=== PATIENT | male | born 1970 ===

== ENCOUNTER 2025-06-01 18:37 | Inpatient (IN) | payer MEDICAID, SELFPAY ==
--- NOTE | ~2025-06-01 | US_ITS ---
EXAMINATION: US ABDOMEN LIMITED CLINICAL INFORMATION: Elevated LFTs.. COMPARISON: June 01, 2025 TECHNIQUE: Real-time ultrasound of the right upper quadrant abdomen using grayscale and color technique. FINDINGS: Liver measures 21 cm. Nodular surface. Coarse echotexture. No gross solid or cystic lesion. Main portal vein is patent with normal hepatopedal flow direction. Perihepatic fluid, moderate volume. There are numerous intraluminal hyperechoic lesions with prostatic or shadowing in the gallbladder lumen. The gallbladder wall measures 5 mm. Trace of pericholecystic fluid. Common bile duct measures 2 mm. Negative sonographic Chase's sign per technologist. Right kidney measured 13 cm. Normal echotexture. No hydronephrosis. 6 mm hyperechoic lesion in the midportion. US/US abdomen limited IMPRESSION: Hepatomegaly and steatosis with the questionable hepatocellular disease versus cirrhosis. Ascites, moderate volume. Cholelithiasis. No choledocholithiasis. 6 mm calcification, midportion right kidney without hydronephrosis. Electronically signed by: Davis Pierre MD 06/06/2025 04:00 PM EST
--- NOTE | ~2025-06-01 | US_ITS ---
CLINICAL HISTORY: RUQ please US abdomen limited Comparison: None provided Findings: The liver is echogenic and enlarged measuring 19.1 cm. There is no intrahepatic bile duct dilatation. The common duct is 3 mm in diameter. Cholelithiasis. There is sonographic Chase sign. Gallbladder wall measures 5 mm. No pericholecystic fluid. IMPRESSION: 1. Cholelithiasis with gallbladder wall thickening. No pericholecystic fluid. Positive Chase sign. 2. Hepatomegaly with hepatic steatosis. This document has been electronically signed by: Bertha Jacobson MD on 06/01/2025 22:17:34
[2025-06-01 18:45] VITALS: BP 156/100; PULSE 98; RESP 18; TEMP 36.3; O2SAT 97; BMI 30.5
--- NOTE | 2025-06-01 18:45 | ED.GENADULT ---
HPI - General Adult General Chief complaint: ETOH/Substance Use Stated complaint: Alcohol withdrawal/Seeking detox Time Seen by Provider: 06/01/25 20:00 Source: patient, RN notes reviewed and old records reviewed Mode of arrival: ambulatory Limitations: no limitations History of Present Illness ED Provider: Ramírez SMITH narrative: Patient is a 55 year old male with a pmhx of alcohol abuse and HTN presenting today requesting detox, last drink was a 6-pack of beer at 3pm. Pt endorses drinking 20+ beers daily for 15 years, he has tried to quit multiple times at home. Most recent detox was 2 years ago and he was sober for 4 months. Pt reports no hx of seizures or DTs while withdrawaling. Today, pt has bilateral hand tremors and is nauseous and dry heaving. Denies diarrhea or pain. Pt states he has multiple life stressors that have caused him to drink, as well as being surrounded by alcoholics. This is the first time he has requested help with his detox, saying he wants to stick to it this time. Related Data Allergies Allergy/AdvReac Type Severity Reaction Status Date / Time No Known Allergies Allergy Verified 06/01/25 18:46 Review of Systems Constitutional: Constitutional: Reports as per HPI, Denies chills, Denies fatigue, Denies fever(s) and Denies headache(s) ENT: Denies headache(s) Cardiovascular: Cardiovascular: Denies chest pain and Denies dyspnea Respiratory: Respiratory: Denies cough and Denies dyspnea Gastrointestinal: Gastrointestinal: Denies abdominal pain and Denies constipation Genitourinary: Genitourinary: Denies difficulty urinating and Denies dysuria Neurologic: Denies headache(s) and Denies focal weakness Endocrine: Endocrine: Denies fatigue PMFSH Social History Social History Alcohol intake: current Alcohol intake frequency: 3 or more drinks per day Alcohol type: beer Advance Directives: No Advance Directives Information Provided: No Do you have a plan to hurt others: No Plan Physical Exam ED Vital Signs: Vital Signs - 24 hr 06/01/25 18:45 06/01/25 20:02 06/01/25 22:08 Temperature 97.4 F 97.6 F 98.0 F Pulse Rate 98 83 89 Respiratory Rate 18 20 18 Blood Pressure 156/100 H 141/89 H 112/83 Pulse Oximetry 97 98 97 Oxygen Delivery Method Room Air Room Air Room Air BMI result Body Mass Index 30.5 Const General: healthy appearing, no acute distress, alert and awake Nutritional Appearance: well nourished Orientation/consciousness: patient oriented x3 HENMT Head: Yes normocephalic and Yes atraumatic Throat: Yes posterior oropharynx normal Eyes Eyelids: Yes eyelids normal Conjunctivae: conjunctivae normal Sclerae: sclerae normal Corneas: corneas normal Pupils: Equal, round and reactive pupils present EOM: EOMs intact bilaterally Resp Effort & Inspection: normal respiratory effort, able to speak in complete sentences and not labored Cardio Rate: regular rate Rhythm: regular rhythm GI Inspection: No distended Palpation (GI): Soft to palpation, not firm, Tenderness to palpation present (GI) in the RUQ, no guarding and not rigid Skin General skin exam: elasticity normal Neuro General: patient oriented x3 Cranial nerves: Yes CN's II-XII intact bilaterally, Yes Equal, round and reactive pupils present and Yes Bilaterally intact EOM present Cognition (Neuro): normal cognition Extrem Other: Moving all extremities well without any obvious deformities Course Course Course Narrative: Rapid medical examination performed in triage by Mel Navarro PA-C: Patient is a 55 year old assigned male at presenting to the emergency department with alcohol withdrawal. Patient states he is going through withdrawal from alcohol, normally drinks 20 beers daily. Detailed physical exam and review of systems are deferred to the construction administrative assistant. EKG and labs ordered. Patient placed back in the waiting room pending room availability and results. Medications Administered Discontinued Medications Generic Name Dose Route Start Last Admin Trade Name Freq PRN Reason Stop Dose Admin Sodium Chloride 1,000 mls @ 999 mls/hr 06/01/25 20:45 06/01/25 22:12 Ns IV 06/01/25 21:45 Infused .Q1H1M PAUL Infusion Magnesium Sulfate 2 gm in 50 mls @ 150 mls/hr 06/01/25 20:38 06/01/25 21:30 Magnesium Sulfate/H2o IV 06/01/25 20:57 Infused ONCE ONE Infusion Thiamine HCl 200 mg/ Sodium 102 mls @ 204 mls/hr 06/01/25 20:38 06/01/25 21:30 Chloride IV 06/01/25 21:07 Infused ONCE ONE Infusion Folic Acid 1 mg/ Sodium 50.2 mls @ 100.4 mls/hr 06/01/25 20:38 06/01/25 22:53 Chloride IV 06/01/25 21:07 Infused ONCE ONE Infusion Phenobarbital Sodium 274 mg 06/01/25 20:45 06/01/25 21:00 Phenobarbital Sodium 130 Mg/Ml Im Once IM 06/01/25 20:46 274 mg ONCE ONE Administration Prochlorperazine Edisylate 10 mg 06/01/25 21:11 06/01/25 21:31 Prochlorperazine Edisylate 10 Mg/2 Ml Vial IVPUSH 06/01/25 21:12 10 mg ONCE ONE Administration Medical Decision Making Medical Decision Making MDM Narrative: 55-year-old male with a past medical history significant for alcohol dependence, liver cirrhosis presents for evaluation of vomiting and alcohol withdrawal. The patient reports a history of alcohol withdrawal but denies any history of seizures or delirium tremens. His last drink was a few hours prior to arrival at 3:00 p.m.. His CIWA score is 14 in his alcohol level is still 297. However the patient drinks a substantial amount of alcohol daily and I do believe he is still having some withdrawal symptoms despite having alcohol in his system. he has multiple electrolyte abnormalities including hyponatremia, hypokalemia senior and hypocalcemia. These will be repleted. The patient's cut no leukocytosis but does have a mild anemia consistent with known liver disease. he has a fairly significant [place] [address] which again in his likely due to liver cirrhosis.. He did not initially report abdominal pain but was vomiting, on exam he had right upper quadrant tenderness. A right upper quadrant ultrasound demonstrated findings consistent with liver cirrhosis, a thickened gallbladder which could be related to his liver cirrhosis. He has gallstones but no pericholecystic fluid. The patient is treated for alcohol withdrawal with phenobarbital. Differential Diagnosis Differential Diagnoses: The differential diagnosis associated with the presentation includes alcohol dependence Acute alcohol withdrawal Liver cirrhosis Dehydration Electrolyte abnormality Metabolic acidosis Admission/Observation Consideration of admission/observation: Escalation of care including admission/observation considered Consult Healthcare Provider Management of the patient was discussed with: Hospitalist and Hybrid Corn Breeder ( general surgery) Lab Data [facility] Lab Attestation statement: I reviewed the patient's lab results. as above 06/01/25 19:23 06/01/25 19:23 Labs: Lab Results 06/01/25 06/01/25 Range/Units 19:23 22:08 WBC 6.5 (4.8-10.8) X10*3/uL RBC 3.71 L (4.60-5.80) X10*6/uL Hgb 12.3 L (14.0-18.0) g/dl Hct 34.0 L (42.0-52.0) % MCV 91.6 (80.0-98.0) fL MCH 33.2 H (27.0-33.0) pg MCHC 36.2 H (31.0-36.0) g/dl RDW 16.4 H (11.0-16.0) % Plt Count 58 L (160-400) X10*3/uL MPV 10.0 (9.4-12.4) fL Immature Gran % (Auto) 0.3 (0.0-0.4) % Neut % (Auto) 68.6 (45-73) % Lymph % (Auto) 24.1 (20-40) % Terrell % (Auto) 5.1 (2-11) % Eos % (Auto) 0.8 (0-4) % Baso % (Auto) 1.1 (0-2) % Lymph # (Auto) 1.6 (1.2-4.9) X10*3/uL Terrell # (Auto) 0.3 (0.1-1.2) X10*3/uL Eos # (Auto) 0.1 (0.0-0.4) X10*3/uL Baso # (Auto) 0.1 (0.0-0.2) X10*3/uL Abs Immat Gran (auto) 0.02 (0.00-0.03) X10*3/uL Absolute Neuts (auto) 4.4 (2.0-8.3) x10*3/uL Absolute Nucleated RBC 0.000 (0.0-0.012) X10*3/uL Nucleated RBC % (auto) 0.0 (0.0-0.2) /100WBC VBG pH 7.44 H (7.32-7.43) VBG pCO2 30 mmHg VBG pO2 138 mmHg VBG HCO3 20 L (22-26) mmol/L VBG O2 Saturation 99.0 % VBG Base Excess -2.3 mmol/L Sodium 132 L (135-145) mmol/L Potassium 3.1 L (3.3-5.1) mmol/L Chloride 99 (96-108) mmol/L Carbon Dioxide 23 (22-29) mmol/L Anion Gap 13 (12-20) BUN 4 L (9-16) mg/dL Creatinine 0.63 (0.5-1.4) mg/dL Estim Creat Clear Calc 145.0 Estimated GFR > 60 Random Glucose 124 H (60-115) mg/dL Calcium 7.9 L (8.4-10.2) mg/dL Magnesium 1.3 L* (1.6-2.6) mg/dL Total Bilirubin 2.8 H (0.0-1.0) mg/dL Direct Bilirubin 1.7 H (0.0-0.5) mg/dL AST 162 H (5-37) U/L ALT 28 (0-40) U/L Alkaline Phosphatase 262 H (39-117) U/L Total Protein 9.0 H (6.5-8.0) g/dL Albumin 3.0 L (3.5-5.0) g/dL Ethyl Alcohol 296 mg/dL Radiology Impression Discussion of test interpretation with radiology: I have reviewed the radiologist's reading. Radiologist Impression: Findings: The liver is echogenic and enlarged measuring 19.1 cm. There is no intrahepatic bile duct dilatation. The common duct is 3 mm in diameter. Cholelithiasis. There is sonographic Chase sign. Gallbladder wall measures 5 mm. No pericholecystic fluid. IMPRESSION: 1. Cholelithiasis with gallbladder wall thickening. No pericholecystic fluid. Positive Chase sign. 2. Hepatomegaly with hepatic steatosis. This document has been electronically signed by: Bertha Jacobson MD on 06/01/2025 22:17:34 Discharge Plan Discharge Clinical Impression: Alcohol withdrawal syndrome Patient Disposition: Admitted As Inpatient Print Language: Unable To Collect
--- NOTE | 2025-06-01 18:46 | ECG_ITS ---
Test Reason : alcohol withdrawal Blood Pressure : */* mmHG Vent. Rate : 88 BPM Atrial Rate : 88 BPM P-R Int : 162 ms QRS Dur : 88 ms QT Int : 426 ms P-R-T Axes : -27 12 31 degrees QTcB Int : 515 ms Normal sinus rhythm Prolonged QT Abnormal ECG No previous ECGs available Referred By: Mel Navarro Electronically Signed By: GUILLERMO PHILLIPS
[2025-06-01 19:29] LABS: MANUAL DIFF FLAG NO
[2025-06-01 19:47] LABS: Alanine Aminotransferase 28 U/L (0-40); Albumin Level 3.0 g/dL (3.5-5.0); Alkaline Phosphatase 262 U/L (39-117); Anion Gap 13 (12-20); Aspartate Amino Transferase 162 U/L (5-37); Blood Urea Nitrogen 4 mg/dL (9-16); Calcium 7.9 mg/dL (8.4-10.2); Carbon Dioxide 23 mmol/L (22-29); Chloride 99 mmol/L (96-108); Creatinine Clr Calc Pharmacy 145.0; Estimated Glomerular Filt Rate > 60; Magnesium 1.3 mg/dL (1.6-2.6); Potassium 3.1 mmol/L (3.3-5.1); Sodium 132 mmol/L (135-145); Total Protein 9.0 g/dL (6.5-8.0)
[2025-06-01 19:57] LABS: Hematocrit 34.0 % (42.0-52.0); Hemoglobin 12.3 g/dl (14.0-18.0); Imm Gran Abs Auto 0.02 X10*3/uL (0.00-0.03); Imm Gran Pct Auto 0.3 % (0.0-0.4); Lymphocytes Absolute Auto 1.6 X10*3/uL (1.2-4.9); Mean Corpuscular HGB Conc 36.2 g/dl (31.0-36.0); Mean Corpuscular Hemoglobin 33.2 pg (27.0-33.0); Mean Corpuscular Volume 91.6 fL (80.0-98.0); NRBC Abs Auto 0.000 X10*3/uL (0.0-0.012); NRBC Pct Auto 0.0 /100WBC (0.0-0.2); Red Blood Count 3.71 X10*6/uL (4.60-5.80); White Blood Count 6.5 X10*3/uL (4.8-10.8)
[2025-06-01 20:02] VITALS: BP 141/89; PULSE 83; RESP 20; TEMP 36.4; O2SAT 98
--- NOTE | 2025-06-01 20:06 | PC.NURSE ---
18 g IV in right AC
[2025-06-01 20:13] LABS: Platelet Count 58 X10*3/uL (160-400)
--- NOTE | 2025-06-01 20:19 | PC.NURSE ---
Pt arrived from triage, changed into hospital gown, and placed on monitor and storage bin tender. Pt reports he is a chronic alcohol drinker, 20 beers per day. Last drink 3pm today. Pt denies hx withdrawal seizures. Pt is tremulous and anxious. CIWA 13 and COWS 10. CARMELINA Saini aware.
--- OUTSIDE RECORDS SUMMARY | 2025-06-01 20:28 | XMS_ITS | Clinical Summary ---
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 2 Active FLUoxetine (PROZAC) 20 MG capsule Take 20 mg by mouth daily. 2 Active losartan (COZAAR) 50 MG tablet Take 50 mg by mouth daily. 1 Active omeprazole (PRILOSEC) 20 MG capsule Take 20 mg by mouth daily. 2 Active naproxen (NAPROSYN) 500 MG tablet Take 1 tablet (500 mg total) by mouth 2 (two) times a day for 3 days. Then twice daily as needed for pain, inflammation 20 tablet 2 Active Active Problems No known active problems Social History Tobacco Use Types Packs/Day Years Used Date Smoking Tobacco: Light Smoker Smokeless Tobacco: Never Tobacco Cessation:Ready to Q uit: No; Counseling Given: No Education Answer Date Recorded Are you interested in more education? Not on jessica e 10/23/2022 Are you concerned about learning? Not on file 10/23/2022 No 10/23/2022 No 10/23/2022 Digital Access Answer Date Recorded No 11/21/2022 No 11/21/2022 Reliable internet access at home? Not on file 11/21/2022 Device with a working camera? Not on file Intimate Partner Violence Answer Date R ecorded Are you denied basic needs s uch as food, clothing, or medical care? No 01/15/2024 In the past 12 months have y ou been in a relationship with a person who hurts, threatens, or tries to control you? No 01/15/2024 Are you denied basic needs s uch as food, clothing, or medical care? No 01/15/2024 In the past 12 months have y ou been in a relationship with a person who hurts, threatens, or tries to control you? No 01/15/2024 Sex and Gender Information Value Date Recorded Sex Assigned at Not on file Legal Sex Male 10:32 PM EDT Gender Identity Not on file Sexual Orientation Not on file Last Filed Vital Signs Vital Sign Reading Time Taken Comments Blood Pressure 102/70 01/15/2024 10:59 AM EDT Pulse 95 01/15/2024 10:59 AM EDT Temperature 36.9 C (98.4 F) 01/15/2024 10:59 AM EDT Respiratory Rate 20 01/15/2024 10:59 AM EDT Oxygen Saturation 96% 01/15/2024 10:59 AM EDT Inhaled Oxygen Concentration - - Weight 108.9 kg (240 lb) 01/15/2024 9:53 AM EDT Height 177.8 cm (5' 10 ) 01/15/2024 9:53 AM EDT Body Mass Index 34.44 01/15/2024 9:53 AM EDT Plan of Treatment Health Maintenance Due Date Last Done Comments Adult Td,Tdap Booster 1970 CREATININE LEVEL 1970 LIPID PANEL 1970 POTASSIUM LEVEL 1970 DEPRESSION SCREENING 1982 SMOKING Hx and SMOKELESS TOB ACCO SCREENING 1983 HEPATITIS C SCREENING 02/24/1988 HIV ONE-TIME SCREENING (18-6 5 YEARS) 02/24/1988 PNEUMOCOCCAL VACCINES (50+ y ears) (1 of 2 - PCV) 1989 SCREENING FOR DIABETES 2005 COLOGUARD 2015 COLONOSCOPY 2015 COLORECTAL CANCER SCREENING 2015 FIT TEST 2015 FOBT 2015 SIGMOIDOSCOPY 2015 VIRTUAL COLONOSCOPY 2015 ZOSTER VACCINES (1 of 2) 02/24/2020 INFLUENZA VACCINE (#1) 2025 COVID-19 VACCINE ( - 2024-2 6 season) 2025 RSV VACCINE (1 - 1-dose 75+ series) 2045 HEPATITIS A VACCINES Aged Out No long er eligible based on patient's age to complete this topic HIB VACCINES Aged Out No longer eligi ble based on patient's age to complete this topic MENINGOCOCCAL VACCINES (ACWY) Aged Out No longer eligible based on patient's age to complete this topic MENINGOCOCCAL VACCINES (B) Aged Out N o longer eligible based on patient's age to complete this topic Medical Devices Not on file Insurance [facility] Care Teams Field Laborer Relationship Specialty Start Date End Date Slim Mancera, DO [address] [facility] [address] [place] [id number] PCP - General Internal Medicine 09/14/21 Additional Source Comments The information contained in this document represents components of the legal health record. It is not the complete legal health record.[facility]
[2025-06-01] MEDS: Thiamine HCL 200 MG in 0.9 % Sodium Chloride 100 ML 204 MG IV (21:00)
[2025-06-01] MEDS: Magnesium Sulfate/H2O 2 GM/50 ML PIGGYBACK IV (21:00)
[2025-06-01] MEDS: PHENobarbitaL sodium 130 MG/ML IM ONCE 274 MG IM (21:00)
--- NOTE | 2025-06-01 21:45 | PC.NURSE ---
Folic acid delayed, pharmacy bringing up to ED
[2025-06-01 22:08] VITALS: BP 112/83; PULSE 89; RESP 18; TEMP 36.7; O2SAT 97
[2025-06-01 22:13] LABS: VBG HCO3 20 mmol/L (22-26); VBG O2 % Saturation 99.0 %
[2025-06-01 22:14] LABS: Venous Blood Gas Refer to POC result
--- NOTE | 2025-06-01 22:19 | PC.NURSE ---
Pt now resting quietly on stretcher, now less anxious. Pt states medications have helped his symptoms. All needs met at this time, call [facility] within reach.
[2025-06-01 23:13] LABS: Lipase 64 U/L (8-78)
[2025-06-01] MEDS: Potassium Chloride ER 20 MEQ TAB.ER.PRT 40 MEQ PO (23:17)
--- NOTE | 2025-06-01 23:20 | P.HPHOSP_ITS ---
History of Present Illness Date of Service: 06/01/25 Chief Complaint: Alcohol withdrawal 55-year-old male with a past medical history of alcoholic liver cirrhosis, hypertension, anxiety, depression; to the hospital requesting alcohol detox. Patient reports that he drinks alcohol on a daily basis-about 20 beers per day. Last drink was few hours prior to coming to the hospital. Denies any prior history of seizures or alcohol withdrawal DTs. Denies any chest pain or palpitations. Reports having tremulousness, nausea and diarrhea. Patient denied any chest pain or palpitations. Denies any fevers and chills. Denies any GI or symptoms. Review of all other systems is negative except mentioned above ER course: Per ER team, patient noted to be tremulous; concern for possible alcohol withdrawal; given phenobarbital. Reports abdominal discomfort. CT abdomen pelvis showed liver cirrhosis and gallbladder wall thickening. Spoke to General surgery who mentioned to obtain HIDA scan unless concern for any acute intervention and patient probably does not need any intervention for tonight. [facility] Social History Alcohol intake: current Alcohol intake frequency: 3 or more drinks per day Alcohol type: beer Patient Tobacco Use Status: Former Tobacco user Advance Directives: No Advance Directives Information Provided: No Do you have a plan to hurt others: No Plan Nutrition Risks: No Nutritional Risk Meds Allergies Allergy/AdvReac Type Severity Reaction Status Date / Time No Known Allergies Allergy Verified 06/01/25 18:46 Active Medications: Current Medications Acetaminophen (Acetaminophen 325 Mg Tablet) 650 mg PO Q6H PRN PRN Reason: Pain, Mild 1-3,fever,headache Calcium Carbonate (Calcium Carbonate 750 Mg Tab.Chew) 750 mg PO Q4H PRN PRN Reason: Heartburn Folic Acid (Folic Acid 1 Mg Tablet) 1 mg PO DAILY PAUL Stop: 06/05/25 08:59 Heparin Sodium (Porcine) (Heparin Sodium,Porcine 5,000 Unit/Ml Vial) 5,000 unit SUBCUT Q8H PAUL Hydromorphone HCl (Hydromorphone Hcl 1 Mg/Ml Syringe) 0.5 mg IVPUSH Q4H PRN; Protocol PRN Reason: Breakthrough Pain Ceftriaxone Sodium 1 gm/ (Sodium Chloride) 50 mls @ 100 mls/hr IV Q24H PAUL Metronidazole (Flagyl) 500 mg in 100 mls @ 100 mls/hr IV Q8H PAUL Magnesium Hydroxide (Milk Of Magnesia 30 Ml Oral.Susp) 30 ml PO DAILY PRN PRN Reason: Constipation Melatonin (Melatonin 3 Mg Tablet) 6 mg PO BEDTIME PRN PRN Reason: Insomnia Multivitamins/Vitamin C (Multivitamin Tablet) 1 tab PO DAILY [facility] Stop: 06/05/25 08:59 Pantoprazole Sodium (Pantoprazole Sodium 40 Mg/10 Ml Vial) 40 mg IVPUSH DAILY@0630 [facility] Pharmacy Consult (Consult Rx Etoh Phenob Im/Po) 1 each MISCELLANE ONCE PRN; Protocol PRN Reason: Consult order Phenobarbital (Phenobarbital 15 Mg Tablet) 45 mg PO BID [facility] Stop: 06/03/25 21:01 Phenobarbital (Phenobarbital 30 Mg Tablet) 30 mg PO BID [facility] Stop: 06/05/25 21:01 Phenobarbital (Phenobarbital 15 Mg Tablet) 15 mg PO DAILY [facility] Stop: 06/07/25 09:01 Phenobarbital Sodium (Phenobarbital Sodium 130 Mg/Ml Vial Im Q3hx2) 205 mg IM Q3H [facility] Stop: 06/02/25 03:01 Sodium Chloride (0.9 % Sodium Chloride Flush 3 Ml Syringe) 3 ml IVFLUSH QSHIFT [facility] Thiamine HCl (Thiamine Hcl 100 Mg Tablet) 100 mg PO DAILY [facility] Stop: 06/05/25 08:59 Physical Exam 2 Vital Signs and Narrative: Vital Signs: Last Vital Signs Temp 98.0 F 06/01/25 22:08 Pulse 89 06/01/25 22:08 Resp 18 06/01/25 22:08 BP 112/83 06/01/25 22:08 Pulse Ox 97 06/01/25 22:08 O2 Del Method Room Air 06/01/25 22:08 BMI result Body Mass Index 30.5 Gen: Appears be in no acute distress HEENT: NCAT, Moist mucosa. Pulmonary: Vesicular breath sounds, fair air entry CVS: Normal S1-S2 Abdomen: BS+, Soft, Nontender Extremities: Warm well perfused Neuro: Alert and awake. Results Labs 06/01/25 19:23 06/01/25 19:23 Labs: Laboratory Results - last 24 hr 06/01/25 06/01/25 19:23 22:08 MCV 91.6 MCH 33.2 H MCHC 36.2 H RDW 16.4 H Plt Count 58 L MPV 10.0 Immature Gran % (Auto) 0.3 Neut % (Auto) 68.6 Lymph % (Auto) 24.1 Logan % (Auto) 5.1 Eos % (Auto) 0.8 Baso % (Auto) 1.1 Lymph # (Auto) 1.6 Logan # (Auto) 0.3 Eos # (Auto) 0.1 Baso # (Auto) 0.1 Abs Immat Gran (auto) 0.02 Absolute Neuts (auto) 4.4 Absolute Nucleated RBC 0.000 Nucleated RBC % (auto) 0.0 VBG pH 7.44 H VBG pCO2 30 VBG pO2 138 VBG HCO3 20 L VBG O2 Saturation 99.0 VBG Base Excess -2.3 Anion Gap 13 Estim Creat Clear Calc 145.0 Estimated GFR > 60 Random Glucose 124 H Calcium 7.9 L Magnesium 1.3 L* Total Bilirubin 2.8 H Direct Bilirubin 1.7 H AST 162 H ALT 28 Alkaline Phosphatase 262 H Total Protein 9.0 H Albumin 3.0 L Lipase 64 Ethyl Alcohol 296 Assessment and Plan (1) Alcohol withdrawal syndrome: Qualifiers: Complication of substance-induced condition: uncomplicated Qualified Code(s): F10.930 - Alcohol use, unspecified with withdrawal, uncomplicated Status: Acute Plan 55-year-old male with a past medical history of alcoholic liver cirrhosis, hypertension, anxiety, depression; to the hospital requesting alcohol detox. Alcohol use disorder: Monitor on CIWA protocol. 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 Seizure precautions Gastritis: IV PPI. Advance diet as tolerated Question cholecystitis: CT abdomen pelvis showed gallbladder wall thickening. Empirically covered with ceftriaxone and Flagyl. Follow up HIDA scan. General surgery notified. Hypomagnesemia: Repleted Hypokalemia: Repleted Hyponatremia: Will monitor Thrombocytopenia: Likely related to alcoholic liver disease. No signs of bleeding currently. H&H stable. Will monitor. Med reconciliation: Resume home medications once med rec is completed by pharmacy in a.m. DVT prophylaxis: SCD boots. No pharmacologic agent due to thrombocytopenia. Code status: Full code Quality Stroke Does the patient have a stroke diagnosis?: No VTE Prior VTE?: No VTE Risk Level:: Medical - moderate - high VTE Device Contraindication: Treatment Not Indicated VTE Drug Contraindication: N/A - Med Ordered
--- NOTE | 2025-06-01 23:43 | PC.NURSE ---
Blood cultures ordered per MD Todd, verbal order with read back.
[2025-06-01 23:57] VITALS: BP 108/73; PULSE 92; RESP 18; TEMP 36.8; O2SAT 95
[2025-06-01] MEDS: PHENobarbitaL sodium 130 MG/ML VIAL IM Q3Hx2 205 MG IM (23:59)
--- NOTE | 2025-06-02 00:17 | HO.NURTONUR ---
Pt is a 55 y.o. male coming in for alcohol withdrawal symptoms and seeking detox. Pt drinks 20 beers daily. Last drink /5 3pm. PMH alcohol abuse and HTN. Pt presented with moderate tremors and nausea/dry heaving. Labs remarkable for elevated bilirubin and elevated LFTs, magnesium 1.3, potassium 3.1. Mag and potassium replaced via IV and PO. Abdominal ultrasound shows 1. Cholelithiasis with gallbladder wall thickening. No pericholecystic fluid. Positive Chase sign. 2. Hepatomegaly with hepatic steatosis. Pt received IV Rocephin and Flagyl and is on the phenobarbital protocol. Pt reports relief of symptoms with phenobarb. VSS, a&ox4. 18 g IV right AC. Pt ambulates independently. Pt denies any abdominal pain at this time. Nausea relieved after medication.
[2025-06-02] MEDS: metroNIDAZOLE/NS 500 MG/100 ML PIGGYBACK 100 MG IV ×3 (00:35→15:08)
--- NOTE | 2025-06-02 00:42 | PC.NURSE ---
Pt ambulated to bathroom with steady gait.
--- NOTE | 2025-06-02 02:21 | PC.NURSE ---
Pt ambulated to bathroom with steady gait.
[2025-06-02] MEDS: PHENobarbitaL sodium 130 MG/ML VIAL IM Q3Hx2 205 MG IM (02:32)
[2025-06-02 02:35] VITALS: BP 116/80; PULSE 93; RESP 18; TEMP 36.4; O2SAT 97
[2025-06-02 05:24] LABS: Alanine Aminotransferase 25 U/L (0-40); Albumin Level 2.7 g/dL (3.5-5.0); Alkaline Phosphatase 221 U/L (39-117); Anion Gap 15 (12-20); Aspartate Amino Transferase 160 U/L (5-37); Blood Urea Nitrogen 3 mg/dL (9-16); Calcium 7.5 mg/dL (8.4-10.2); Carbon Dioxide 19 mmol/L (22-29); Chloride 106 mmol/L (96-108); Creatinine Clr Calc Pharmacy 147.3; Estimated Glomerular Filt Rate > 60; Potassium 3.8 mmol/L (3.3-5.1); Sodium 136 mmol/L (135-145); Total Protein 8.0 g/dL (6.5-8.0)
[2025-06-02 05:34] LABS: NRBC Abs Auto 0.000 X10*3/uL (0.0-0.012); NRBC Pct Auto 0.0 /100WBC (0.0-0.2); PLT CLUMP 1; SCAN SMEAR FLAG 1
[2025-06-02 05:36] LABS: Hematocrit 31.7 % (42.0-52.0); Hemoglobin 11.6 g/dl (14.0-18.0); Imm Gran Abs Auto 0.02 X10*3/uL (0.00-0.03); Imm Gran Pct Auto 0.4 % (0.0-0.4); Lymphocytes Absolute Auto 2.2 X10*3/uL (1.2-4.9); Mean Corpuscular HGB Conc 36.6 g/dl (31.0-36.0); Mean Corpuscular Hemoglobin 32.7 pg (27.0-33.0); Mean Corpuscular Volume 89.3 fL (80.0-98.0); Red Blood Count 3.55 X10*6/uL (4.60-5.80)
[2025-06-02 05:38] LABS: Platelet Count 44 X10*3/uL (160-400); White Blood Count 5.4 X10*3/uL (4.8-10.8)
[2025-06-02 05:39] LABS: MANUAL DIFF FLAG NO
[2025-06-02 06:21] VITALS: BP 134/80; PULSE 100; RESP 20; TEMP 36.9; O2SAT 97
[2025-06-02] MEDS: PHENobarbital 15 MG TABLET 45 MG PO ×2 (08:07→20:08)
--- NOTE | 2025-06-02 08:41 | PC.NURSE ---
This RN assumed care of patient @ 0700 Patient calm and cooperative Denies pain CIWA = 4 Patient c/o of increased anxiety Notified provider, received order for klonopin, good effect noted Patient awaiting bed assignment
--- NOTE | 2025-06-02 10:22 | PHA.MEDREC ---
Addendum entered by Drea Abad RPh 06/02/25 10:32: Reviewed by pharmacist. Of note patient has decreased his fluoxetine to 20 mg daily, was previously taking 40 mg daily Original Note: Pharmacy Consult ? Medication Reconciliation Pharmacy has completed the medication reconciliation. Confirmed medication list with patient and against claims history.
--- NOTE | 2025-06-02 10:28 | P.CONGS_ITS ---
History of Present Illness Consult details Consult date: 06/02/25 Reason for consult: abdominal pain Requesting physician: Hugh Todd Narrative: 55-year-old known alcoholic with hepatic cirrhosis and sequelae including esophageal varices and ascites presents for acute alcohol withdrawal. As part of this evaluation he received a right upper quadrant ultrasound that showed a 5 mm gallbladder wall with cholelithiasis. 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 Patient has no abdominal surgical history. Review of Systems 2 Review of Systems: Review of systems difficult to ascertain as the patient is undergoing alcohol withdrawal Neurologic: Reports confusion Psychiatric: Psychiatric: Reports confusion [facility] Social History Social History Alcohol intake: current Alcohol intake frequency: 3 or more drinks per day Alcohol type: beer Patient Tobacco Use Status: Former Tobacco user Advance Directives: No Advance Directives Information Provided: No Do you have a plan to hurt others: No Plan Nutrition Risks: No Nutritional Risk Meds Allergies Allergy/AdvReac Type Severity Reaction Status Date / Time No Known Allergies Allergy Verified 06/01/25 18:46 Active Medications: Current Medications Acetaminophen (Acetaminophen 325 Mg Tablet) 650 mg PO Q6H PRN PRN Reason: Pain, Mild 1-3,fever,headache Calcium Carbonate (Calcium Carbonate 750 Mg Tab.Chew) 750 mg PO Q4H PRN PRN Reason: Heartburn Folic Acid (Folic Acid 1 Mg Tablet) 1 mg PO DAILY [facility] Stop: 06/05/25 08:59 Last Admin: 06/02/25 08:07 Dose: 1 mg Hydromorphone HCl (Hydromorphone Hcl 0.5 Mg/0.5 Ml Syringe) 0.5 mg IVPUSH Q4H PRN; Protocol PRN Reason: Breakthrough Pain Ceftriaxone Sodium 1 gm/ (Sodium Chloride) 50 mls @ 100 mls/hr IV 2200 [facility] Last Infusion: 06/02/25 00:32 Dose: Infused Metronidazole (Flagyl) 500 mg in 100 mls @ 100 mls/hr IV Q8H [facility] Last Infusion: 06/02/25 09:09 Dose: Infused Magnesium Hydroxide (Milk Of Magnesia 30 Ml Oral.Susp) 30 ml PO DAILY PRN PRN Reason: Constipation Melatonin (Melatonin 3 Mg Tablet) 6 mg PO BEDTIME PRN PRN Reason: Insomnia Multivitamins/Vitamin C (Multivitamin Tablet) 1 tab PO DAILY [facility] Stop: 06/05/25 08:59 Last Admin: 06/02/25 08:07 Dose: 1 tab Pantoprazole Sodium (Pantoprazole Sodium 40 Mg/10 Ml Vial) 40 mg IVPUSH DAILY@0630 [facility] Last Admin: 06/02/25 06:16 Dose: 40 mg Pharmacy Consult (Consult Rx Etoh Phenob Im/Po) 1 each MISCELLANE ONCE PRN; Protocol PRN Reason: Consult order Phenobarbital (Phenobarbital 15 Mg Tablet) 45 mg PO BID [facility] Stop: 06/03/25 21:01 Last Admin: 06/02/25 08:07 Dose: 45 mg Phenobarbital (Phenobarbital 30 Mg Tablet) 30 mg PO BID [facility] Stop: 06/05/25 21:01 Phenobarbital (Phenobarbital 15 Mg Tablet) 15 mg PO DAILY [facility] Stop: 06/07/25 09:01 Sodium Chloride (0.9 % Sodium Chloride Flush 3 Ml Syringe) 3 ml IVFLUSH QSHIFT [facility] Last Admin: 06/02/25 08:30 Dose: Not Given Thiamine HCl (Thiamine Hcl 100 Mg Tablet) 100 mg PO DAILY [facility] Stop: 06/05/25 08:59 Last Admin: 06/02/25 08:07 Dose: 100 mg Home Medications ?Medication ?Instructions ?Recorded ?Confirmed ?Last Taken ?Type clonazepam 1 mg tablet 1 mg PO DAILY PRN Anxiety 06/02/25 05/28/25 History fluoxetine 20 mg capsule 20 mg PO DAILY 06/02/2512/2005/28/25 History magnesium oxide 400 mg (241.3 mg 400 mg PO DAILY 06/0206/02/25 05/28/25 History magnesium) tablet multivitamin 1 tab PO DAILY 06/02/2512/2005/28/25 History naproxen 250 mg tablet 250 mg PO BID PRN Pain 06/0206/02/25 Unknown History omeprazole 20 mg capsule,delayed 20 mg PO DAILY 06/02/25 05/28/25 History release spironolactone 50 mg tablet 50 mg PO DAILY 06/02/2505/28/25 History vitamin A 2,400 mcg capsule 2,400 mcg PO DAILY 5 06/02/25 05/28/25 History Physical Exam 2 Vital Signs: Vital Signs: Last Vital Signs Temp 98.4 F 06/02/25 06:21 Pulse 100 06/02/25 06:21 Resp 20 06/02/25 06:21 BP 134/80 06/02/25 06:21 Pulse Ox 97 06/02/25 06:21 O2 Del Method Room Air 06/02/25 06:21 BMI result Body Mass Index 30.5 Const: General: anxious, confusion and ill appearing Nutritional Appearance: obese Orientation/consciousness: confusion Eyes: General: appearance normal, both eyes and all related structures Chest: Chest palpation & inspection: normal inspection of the chest Resp: Effort & Inspection: normal respiratory effort Cardio: Rate: regular rate GI: Other: Morbidly obese nondistended. Vague nonspecific tenderness on the right side of his abdomen. No peritoneal signs. No guarding. No scars. No external appreciation of cirrhotic sequelae. Neuro: General: confusion Results Labs 06/02/25 05:00 06/02/25 05:00 Labs: Abnormal lab results 06/01/25 06/01/25 06/02/25 Range/Units 19:23 22:08 05:00 RBC 3.71 L 3.55 L (4.60-5.80) X10*6/uL Hgb 12.3 L 11.6 L (14.0-18.0) g/dl Hct 34.0 L 31.7 L (42.0-52.0) % MCH 33.2 H (27.0-33.0) pg MCHC 36.2 H 36.6 H (31.0-36.0) g/dl RDW 16.4 H 16.1 H (11.0-16.0) % Plt Count 58 L 44 L (160-400) X10*3/uL Lymph % (Auto) 40.6 H (20-40) % VBG pH 7.44 H (7.32-7.43) VBG HCO3 20 L (22-26) mmol/L Sodium 132 L (135-145) mmol/L Potassium 3.1 L (3.3-5.1) mmol/L Carbon Dioxide 19 L (22-29) mmol/L BUN 4 L 3 L (9-16) mg/dL Random Glucose 124 H (60-115) mg/dL Calcium 7.9 L 7.5 L (8.4-10.2) mg/dL Magnesium 1.3 L* (1.6-2.6) mg/dL Total Bilirubin 2.8 H 2.4 H (0.0-1.0) mg/dL Direct Bilirubin 1.7 H (0.0-0.5) mg/dL AST 162 H 160 H (5-37) U/L Alkaline Phosphatase 262 H 221 H (39-117) U/L Total Protein 9.0 H (6.5-8.0) g/dL Albumin 3.0 L 2.7 L (3.5-5.0) g/dL Short CBC 06/01/25 06/02/25 Range/Units 19:23 05:00 WBC 6.5 5.4 (4.8-10.8) X10*3/uL Hgb 12.3 L 11.6 L (14.0-18.0) g/dl Hct 34.0 L 31.7 L (42.0-52.0) % Plt Count 58 L 44 L (160-400) X10*3/uL BMP 06/01/25 06/02/25 19:23 05:00 Sodium 132 L 136 Potassium 3.1 L 3.8 D Chloride 99 106 Carbon Dioxide 23 19 L BUN 4 L 3 L Creatinine 0.63 0.62 Calcium 7.9 L 7.5 L Liver Function 06/01/25 06/02/25 Range/Units 19:23 05:00 Total Bilirubin 2.8 H 2.4 H (0.0-1.0) mg/dL Direct Bilirubin 1.7 H (0.0-0.5) mg/dL AST 162 H 160 H (5-37) U/L ALT 28 25 (0-40) U/L Alkaline Phosphatase 262 H 221 H (39-117) U/L Albumin 3.0 L 2.7 L (3.5-5.0) g/dL All other labs normal. Assessment and Plan (1) Abdominal pain: Status: Acute Plan 55-year-old male who has a known alcoholic cirrhotic withdrawing from alcohol with nonspecific reports of abdominal pain. If cholecystitis is a concern then HIDA scan could be helpful. He is not an operative candidate at this time secondary to his current condition. Total time managing care of this patient today: 45 minutes. Procedures Date of Service Date of Service: 06/02/25
--- NOTE | 2025-06-02 12:55 | P.PNIM_ITS ---
Subjective Subjective Date of Service: 06/02/25 Interval History: Pt seen and evaluated in the ED where he is sitting in a chair visibly tremulous Reports increased anxiety No diaphoresis, N/V, auditory or visual hallucinations Also developed a slight nosebleed Denies trauma to the area or headache No chest pain or pressure Abdominal pain Review of Systems Review of Systems: Yes all other systems are reviewed and are negative Physical Exam 2 Exam: Exam: General: AOx3, no acute distress ENT: mild epistaxis, nose atraumatic Resp: CTA bilaterally CVS: S1, S2, regular rate, tachycardic GI: +BS, NT, no distention Skin: Warm, dry Neuro: Cranial nerves II-XII grossly intact bilaterally. Motor grossly intact bilaterally. Significant resting upper extremity tremors noted. Extremities: No edema Psych: Appropriate affect Vital Signs: Vital Signs: Last Vital Signs Temp 98.4 F 06/02/25 06:21 Pulse 100 06/02/25 06:21 Resp 20 06/02/25 06:21 BP 134/80 06/02/25 06:21 Pulse Ox 97 06/02/25 06:21 O2 Del Method Room Air 06/02/25 06:21 BMI result Body Mass Index 30.5 Objective Data Active Medications Acetaminophen (Acetaminophen 325 Mg Tablet) 650 mg PO Q6H PRN PRN Reason: Pain, Mild 1-3,fever,headache Calcium Carbonate (Calcium Carbonate 750 Mg Tab.Chew) 750 mg PO Q4H PRN PRN Reason: Heartburn Folic Acid (Folic Acid 1 Mg Tablet) 1 mg PO DAILY [facility] Stop: 06/05/25 08:59 Last Admin: 06/02/25 08:07 Dose: 1 mg Documented By: BISI Hydromorphone HCl (Hydromorphone Hcl 0.5 Mg/0.5 Ml Syringe) 0.5 mg IVPUSH Q4H PRN; Protocol PRN Reason: Breakthrough Pain Ceftriaxone Sodium 1 gm/ (Sodium Chloride) 50 mls @ 100 mls/hr IV 2200 [facility] Last Infusion: 06/02/25 00:32 Dose: Infused Documented By: CHET Metronidazole (Flagyl) 500 mg in 100 mls @ 100 mls/hr IV Q8H [facility] Last Infusion: 06/02/25 09:09 Dose: Infused Documented By: BISI Magnesium Hydroxide (Milk Of Magnesia 30 Ml Oral.Susp) 30 ml PO DAILY PRN PRN Reason: Constipation Melatonin (Melatonin 3 Mg Tablet) 6 mg PO BEDTIME PRN PRN Reason: Insomnia Multivitamins/Vitamin C (Multivitamin Tablet) 1 tab PO DAILY [facility] Stop: 06/05/25 08:59 Last Admin: 06/02/25 08:07 Dose: 1 tab Documented By: BISI Pantoprazole Sodium (Pantoprazole Sodium 40 Mg/10 Ml Vial) 40 mg IVPUSH DAILY@0630 [facility] Last Admin: 06/02/25 06:16 Dose: 40 mg Documented By: HERBIE Pharmacy Consult (Consult Rx Etoh Phenob Im/Po) 1 each MISCELLANE ONCE PRN; Protocol PRN Reason: Consult order Phenobarbital (Phenobarbital 15 Mg Tablet) 45 mg PO BID [facility] Stop: 06/03/25 21:01 Last Admin: 06/02/25 08:07 Dose: 45 mg Documented By: BISI Phenobarbital (Phenobarbital 30 Mg Tablet) 30 mg PO BID [facility] Stop: 06/05/25 21:01 Phenobarbital (Phenobarbital 15 Mg Tablet) 15 mg PO DAILY [facility] Stop: 06/07/25 09:01 Sodium Chloride (0.9 % Sodium Chloride Flush 3 Ml Syringe) 3 ml IVFLUSH QSHIFT [facility] Last Admin: 06/02/25 08:30 Dose: Not Given Documented By: BISI Non-Admin Reason: IV Running Thiamine HCl (Thiamine Hcl 100 Mg Tablet) 100 mg PO DAILY [facility] Stop: 06/05/25 08:59 Last Admin: 06/02/25 08:07 Dose: 100 mg Documented By: BISI Labs 06/02/25 05:00 06/02/25 05:00 Labs: Laboratory Results - last 24 hr 06/01/25 06/01/25 06/02/25 19:23 22:08 05:00 MCV 91.6 89.3 MCH 33.2 H 32.7 MCHC 36.2 H 36.6 H RDW 16.4 H 16.1 H Plt Count 58 L 44 L MPV 10.0 10.0 Immature Gran % (Auto) 0.3 0.4 Neut % (Auto) 68.6 49.4 Lymph % (Auto) 24.1 40.6 H [place] % (Auto) 5.1 7.2 Eos % (Auto) 0.8 1.3 Baso % (Auto) 1.1 1.1 Lymph # (Auto) 1.6 2.2 [place] # (Auto) 0.3 0.4 Eos # (Auto) 0.1 0.1 Baso # (Auto) 0.1 0.1 Abs Immat Gran (auto) 0.02 0.02 Absolute Neuts (auto) 4.4 2.7 Absolute Nucleated RBC 0.000 0.000 Nucleated RBC % (auto) 0.0 0.0 VBG pH 7.44 H VBG pCO2 30 VBG pO2 138 VBG HCO3 20 L VBG O2 Saturation 99.0 VBG Base Excess -2.3 Anion Gap 13 15 Estim Creat Clear Calc 145.0 147.3 Estimated GFR > 60 > 60 Random Glucose 124 H 87 Calcium 7.9 L 7.5 L Magnesium 1.3 L* Total Bilirubin 2.8 H 2.4 H Direct Bilirubin 1.7 H AST 162 H 160 H ALT 28 25 Alkaline Phosphatase 262 H 221 H Total Protein 9.0 H 8.0 Albumin 3.0 L 2.7 L Lipase 64 Ethyl Alcohol 296 Assessment and Plan (1) Alcohol withdrawal syndrome: Status: Acute Assessment and Plan: 55-year-old male with a past medical history of alcoholic liver cirrhosis, hypertension, anxiety, depression; to the hospital requesting alcohol detox. Alcohol use disorder with acute alcohol withdrawal Pt tremulous, increased anxiety, reports drinking 25+ beers daily Will administer additional dose of phenobarbital 205 mg IM Continue on phenobarb protocol Monitor on CIWA Thiamine, folate, multivitamins, IV PPI Addiction medicine consult Seizure precautions Monitor on telemetry Question of cholecystitis CT abdomen pelvis showed gallbladder wall thickening, abd U/S positive Murhphy's sign; pt with RUQ tenderness Continue empiric ceftriaxone and Flagyl, started 06/01 Follow HIDA scan General surgery notified. Hypomagnesemia: Repleted Hypokalemia: Repleted Hyponatremia: Will monitor Thrombocytopenia: Likely related to alcoholic liver disease. No signs of bleeding currently. H&H stable. Will monitor. DVT prophylaxis: SCD boots. No pharmacologic agent due to thrombocytopenia. Code status: Full code Quality Stroke Does the patient have a stroke diagnosis?: No VTE Prior VTE?: No VTE Risk Level:: Medical - moderate - high VTE Device Contraindication: Treatment Not Indicated VTE Drug Contraindication: N/A - Med Ordered
--- NOTE | 2025-06-02 14:56 | MHC.RECOVRN ---
Checked in w/ pt again and he is feeling finally a little more normal . Is concerned that he cannot drink fluids prior to upcoming procedure but able to remain calm. He has educational materials to read on AUD & tx options. He is open to trying [facility]. recovery eval done.
--- NOTE | 2025-06-02 15:16 | PC.NURSE ---
Pt made it to the window without chair alarm. pt educated on importance of high fall risk and risk for seizures while withdrawing from alcohol. pt verbalized understnading. jose alarm placed and call cisner[facility] within reach pt refusing to go to the bed. will continue to educate the pt.
--- NOTE | 2025-06-02 15:27 | MHC.CM.PN ---
THIS CM MET WITH PATIENT, HE STATES HE HAS BEEN STAYING AT A FRIENDS HOUSE, SOMETIMES EVEN IN HIS CAR. PATIENT STATES HIS MOTHER WILL TRANSPORT HIM HOME AT DISCHARGE. NEW HCP COMPLETED, NOW ON FILE. PCP: DR. MARLEE HUNTER
[2025-06-02 15:33] VITALS: BP 139/87; PULSE 109; RESP 18; TEMP 37; O2SAT 97
[2025-06-02 20:00] VITALS: BP 143/89; PULSE 99; RESP 18; TEMP 37; O2SAT 96
[2025-06-02] MEDS: 0.9 % Sodium Chloride Flush 3 ML SYRINGE IVFLUSH (20:09)
[2025-06-03] VITALS (7 sets, daily range): BP systolic 129–150; BP diastolic 73–91; PULSE 81–100; RESP 16–20; TEMP 36.4–37.4; O2SAT 95–99
[2025-06-03] MEDS: metroNIDAZOLE/NS 500 MG/100 ML PIGGYBACK 100 MG IV ×4 (00:36→23:27)
[2025-06-03 07:11] LABS: Hemoglobin 10.3 g/dl (14.0-18.0); NRBC Abs Auto 0.000 X10*3/uL (0.0-0.012); NRBC Pct Auto 0.0 /100WBC (0.0-0.2); PLT CLUMP 1
[2025-06-03 07:12] LABS: Anion Gap 11 (12-20); Blood Urea Nitrogen 4 mg/dL (9-16); Calcium 7.4 mg/dL (8.4-10.2); Carbon Dioxide 22 mmol/L (22-29); Chloride 102 mmol/L (96-108); Creatinine Clr Calc Pharmacy 157.5; Estimated Glomerular Filt Rate > 60; Potassium 2.9 mmol/L (3.3-5.1); Sodium 132 mmol/L (135-145)
[2025-06-03 07:13] LABS: Hematocrit 28.7 % (42.0-52.0); Mean Corpuscular HGB Conc 35.9 g/dl (31.0-36.0); Mean Corpuscular Hemoglobin 32.4 pg (27.0-33.0); Mean Corpuscular Volume 90.3 fL (80.0-98.0); Red Blood Count 3.18 X10*6/uL (4.60-5.80)
[2025-06-03 07:14] LABS: Platelet Count 32 X10*3/uL (160-400); White Blood Count 4.2 X10*3/uL (4.8-10.8)
[2025-06-03] MEDS: PHENobarbital 15 MG TABLET 45 MG PO ×2 (07:39→21:30)
[2025-06-03] MEDS: Magnesium Sulfate/H2O 2 GM/50 ML PIGGYBACK IV (09:33)
[2025-06-03] MEDS: Potassium Chloride Packet 20 MEQ PACKET 40 MEQ PO (10:02)
[2025-06-03 10:05] LABS: Magnesium 1.2 mg/dL (1.6-2.6)
--- NOTE | 2025-06-03 10:06 | HO.PM.IMPN ---
Subjective Subjective Date of Service: 06/03/25 Interval History: Potassium and magnesium low, will replenish Feeling better today with anxiety and tremors much improved Still has limited p.o. intake No significant nausea, vomiting, or abdominal pain Review of Systems Review of Systems: Yes all other systems are reviewed and are negative Physical Exam Exam: Exam: General: AOx3, no acute distress Resp: CTA bilaterally CVS: S1, S2, RRR GI: +BS, NT, no distention. Negative Chase's sign. Skin: Warm, dry Neuro: Cranial nerves II-XII grossly intact bilaterally. Motor grossly intact bilaterally. Mild upper extremity resting tremors. No tongue fascicultions Extremities: No edema Psych: Appropriate affect Vital Signs: Vital Signs: Last Vital Signs Temp 98.4 F 06/03/25 08:00 Pulse 94 06/03/25 08:00 Resp 20 06/03/25 08:00 BP 136/86 06/03/25 08:00 Pulse Ox 96 06/03/25 08:00 O2 Del Method Room Air 06/03/25 08:00 BMI result Body Mass Index 30.5 Objective Data Active Medications Acetaminophen (Acetaminophen 325 Mg Tablet) 650 mg PO Q6H PRN PRN Reason: Pain, Mild 1-3,fever,headache Calcium Carbonate (Calcium Carbonate 750 Mg Tab.Chew) 750 mg PO Q4H PRN PRN Reason: Heartburn Clonazepam (Clonazepam 1 Mg Tablet) 1 mg PO DAILY PRN PRN Reason: Anxiety Last Admin: 06/02/25 17:31 Dose: 1 mg Documented By: ZAHIDA Fluoxetine HCl (Fluoxetine Hcl 20 Mg Capsule) 20 mg PO DAILY [facility] Last Admin: 06/03/25 07:40 Dose: 20 mg Documented By: ZAHIDA Folic Acid (Folic Acid 1 Mg Tablet) 1 mg PO DAILY [facility] Stop: 06/05/25 08:59 Last Admin: 06/03/25 07:40 Dose: 1 mg Documented By: ZAHIDA Hydromorphone HCl (Hydromorphone Hcl 0.5 Mg/0.5 Ml Syringe) 0.5 mg IVPUSH Q4H PRN; Protocol PRN Reason: Breakthrough Pain Ceftriaxone Sodium 1 gm/ (Sodium Chloride) 50 mls @ 100 mls/hr IV 2200 [facility] Last Infusion: 06/02/25 23:53 Dose: Infused Documented By: YAMILKA Metronidazole (Flagyl) 500 mg in 100 mls @ 100 mls/hr IV Q8H [facility] Last Infusion: 06/03/25 09:57 Dose: Infused Documented By: ZAHIDA Potassium Chloride (Potassium Chloride/H20) 10 meq in 100 mls @ 100 mls/hr IV Q1H [facility] Stop: 06/03/25 10:14 Magnesium Hydroxide (Milk Of Magnesia 30 Ml Oral.Susp) 30 ml PO DAILY PRN PRN Reason: Constipation Magnesium Oxide (Magnesium Oxide 400 Mg Tablet) 400 mg PO BIDPC [facility] Last Admin: 06/03/25 09:34 Dose: Not Given Documented By: ZAHIDA Non-Admin Reason: See Note Comments: pt already received am dose. skip 830 per pharmacy Melatonin (Melatonin 3 Mg Tablet) 6 mg PO BEDTIME PRN PRN Reason: Insomnia Multivitamins/Vitamin C (Multivitamin Tablet) 1 tab PO DAILY [facility] Stop: 06/05/25 08:59 Last Admin: 06/03/25 07:40 Dose: 1 tab Documented By: ZAHIDA Pantoprazole Sodium (Pantoprazole Sodium 40 Mg/10 Ml Vial) 40 mg IVPUSH DAILY@0630 [facility] Last Admin: 06/03/25 05:46 Dose: 40 mg Documented By: YAMILKA Pharmacy Consult (Consult Rx Etoh Phenob Im/Po) 1 each MISCELLANE ONCE PRN; Protocol PRN Reason: Consult order Phenobarbital (Phenobarbital 15 Mg Tablet) 45 mg PO BID [facility] Stop: 06/03/25 21:01 Last Admin: 06/03/25 07:39 Dose: 45 mg Documented By: ZAHIDA Phenobarbital (Phenobarbital 30 Mg Tablet) 30 mg PO BID [facility] Stop: 06/05/25 21:01 Phenobarbital (Phenobarbital 15 Mg Tablet) 15 mg PO DAILY [facility] Stop: 06/07/25 09:01 Sodium Chloride (0.9 % Sodium Chloride Flush 3 Ml Syringe) [facility] Last Admin: 06/03/25 07:40 Dose: Not Given Documented By: ZAHIDA Non-Admin Reason: IV Running Spironolactone (Spironolactone 25 Mg Tablet) 50 mg PO DAILY [facility]; Protocol Last Admin: 06/03/25 07:40 Dose: 50 mg Documented By: ZAHIDA Thiamine HCl (Thiamine Hcl 100 Mg Tablet) 100 mg PO DAILY [facility] Stop: 06/05/25 08:59 Last Admin: 06/03/25 07:40 Dose: 100 mg Documented By: ZAHIDA Labs 06/03/25 06:21 06/03/25 06:21 Labs: Laboratory Results - last 24 hr 06/03/25 06:21 MCV 90.3 MCH 32.4 MCHC 35.9 RDW 16.2 H Plt Count 32 L D MPV 11.2 Absolute Nucleated RBC 0.000 Nucleated RBC % (auto) 0.0 Anion Gap 11 L Estim Creat Clear Calc 157.5 Estimated GFR > 60 Random Glucose 86 Calcium 7.4 L Magnesium 1.2 L* Microbiology Microbiology Results: Microbiology 06/01/25 23:55 Blood Culture - Preliminary Blood - Venous No growth after 24 hours. 06/01/25 23:55 Blood Culture - Preliminary Blood - Venous No growth after 24 hours. Assessment and Plan (1) Alcohol withdrawal syndrome: Status: Acute Assessment and Plan: 55-year-old male with a past medical history of alcoholic liver cirrhosis, hypertension, anxiety, depression; to the hospital requesting alcohol detox. Alcohol use disorder with acute alcohol withdrawal Pt initially tremulous, increased anxiety, reports drinking 25+ beers daily Received additional dose of phenobarbital 205 mg IM on 06/02 Continue on phenobarb protocol Monitor on CIWA Thiamine, folate, multivitamins, IV PPI Addiction medicine consult Seizure precautions Monitor on telemetry Question of cholecystitis CT abdomen pelvis showed gallbladder wall thickening, abd U/S positive Murhphy's sign Pt currently with no N/V/D or abd pain; abd exam benign Continue empiric ceftriaxone and Flagyl for now, started 06/01 Defer HIDA scan for now as pt much improved General surgery consulted Hypomagnesemia: Continues to be low; Replete as necessary Hypokalemia: Continues to be low; Replete with oral and IV potassium as necessary Hyponatremia: Will monitor Thrombocytopenia: Likely related to alcoholic liver disease. No signs of bleeding currently. H&H stable. Will monitor. DVT prophylaxis: SCD boots. No pharmacologic agent due to thrombocytopenia. Code status: Full code Pt will require continued hospitalization for continued treatment and monitoring of controlled alcohol detox on phenobarb protocol. Quality Stroke Does the patient have a stroke diagnosis?: No VTE Prior VTE?: No VTE Risk Level:: Medical - moderate - high VTE Device Contraindication: Treatment Not Indicated VTE Drug Contraindication: N/A - Med Ordered
[2025-06-03] MEDS: Potassium Chloride/H20 10 MEQ/100 ML PIGGYBACK 100 MEQ IV ×2 (11:42→13:21)
--- NOTE | 2025-06-03 12:19 | P.PNGS_ITS ---
Subjective Subjective Date of Service: 06/03/25 Interval history: Patient is sleeping soundly in bed and snoring loudly at the time of visit. He was arousable and said he did not wish to participate in interview or exam this morning. He denied any pain. Physical Exam 2 Vital Signs: Vital Signs: Last Vital Signs Temp 97.6 F 06/03/25 12:00 Pulse 94 06/03/25 12:00 Resp 20 06/03/25 12:00 BP 148/89 H 06/03/25 12:00 Pulse Ox 99 06/03/25 12:00 O2 Del Method Room Air 06/03/25 12:00 BMI result Body Mass Index 30.5 Objective Data Active Medications Acetaminophen (Acetaminophen 325 Mg Tablet) 650 mg PO Q6H PRN PRN Reason: Pain, Mild 1-3,fever,headache Calcium Carbonate (Calcium Carbonate 750 Mg Tab.Chew) 750 mg PO Q4H PRN PRN Reason: Heartburn Clonazepam (Clonazepam 1 Mg Tablet) 1 mg PO DAILY PRN PRN Reason: Anxiety Last Admin: 06/02/25 17:31 Dose: 1 mg Documented By: ZAHIDA Fluoxetine HCl (Fluoxetine Hcl 20 Mg Capsule) 20 mg PO DAILY [facility] Last Admin: 06/03/25 07:40 Dose: 20 mg Documented By: ZAHIDA Folic Acid (Folic Acid 1 Mg Tablet) 1 mg PO DAILY [facility] Stop: 06/05/25 08:59 Last Admin: 06/03/25 07:40 Dose: 1 mg Documented By: ZAHIDA Hydromorphone HCl (Hydromorphone Hcl 0.5 Mg/0.5 Ml Syringe) 0.5 mg IVPUSH Q4H PRN; Protocol PRN Reason: Breakthrough Pain Ceftriaxone Sodium 1 gm/ (Sodium Chloride) 50 mls @ 100 mls/hr IV 2200 [facility] Last Infusion: 06/02/25 23:53 Dose: Infused Documented By: YAMILKA Metronidazole (Flagyl) 500 mg in 100 mls @ 100 mls/hr IV Q8H [facility] Last Infusion: 06/03/25 09:57 Dose: Infused Documented By: ZAHIDA Magnesium Hydroxide (Milk Of Magnesia 30 Ml Oral.Susp) 30 ml PO DAILY PRN PRN Reason: Constipation Magnesium Oxide (Magnesium Oxide 400 Mg Tablet) 400 mg PO BIDPC [facility] Last Admin: 06/03/25 09:34 Dose: Not Given Documented By: ZAHIDA Non-Admin Reason: See Note Comments: pt already received am dose. skip 830 per pharmacy Melatonin (Melatonin 3 Mg Tablet) 6 mg PO BEDTIME PRN PRN Reason: Insomnia Multivitamins/Vitamin C (Multivitamin Tablet) 1 tab PO DAILY [facility] Stop: 06/05/25 08:59 Last Admin: 06/03/25 07:40 Dose: 1 tab Documented By: ZAHIDA Pantoprazole Sodium (Pantoprazole Sodium 40 Mg/10 Ml Vial) 40 mg IVPUSH DAILY@0630 [facility] Last Admin: 06/03/25 05:46 Dose: 40 mg Documented By: YAMILKA Pharmacy Consult (Consult Rx Etoh Phenob Im/Po) 1 each MISCELLANE ONCE PRN; Protocol PRN Reason: Consult order Phenobarbital (Phenobarbital 15 Mg Tablet) 45 mg PO BID [facility] Stop: 06/03/25 21:01 Last Admin: 06/03/25 07:39 Dose: 45 mg Documented By: ZAHIDA Phenobarbital (Phenobarbital 30 Mg Tablet) 30 mg PO BID [facility] Stop: 06/05/25 21:01 Phenobarbital (Phenobarbital 15 Mg Tablet) 15 mg PO DAILY [facility] Stop: 06/07/25 09:01 Sodium Chloride (0.9 % Sodium Chloride Flush 3 Ml Syringe) 3 ml IVFLUSH QSNEFT [facility] Last Admin: 06/03/25 07:40 Dose: Not Given Documented By: ZAHIDA Non-Admin Reason: IV Running Spironolactone (Spironolactone 25 Mg Tablet) 50 mg PO DAILY [facility]; Protocol Last Admin: 06/03/25 07:40 Dose: 50 mg Documented By: ZAHIDA Thiamine HCl (Thiamine Hcl 100 Mg Tablet) 100 mg PO DAILY [facility] Stop: 06/05/25 08:59 Last Admin: 06/03/25 07:40 Dose: 100 mg Documented By: ZAHIDA Labs 06/03/25 06:21 06/03/25 06:21 Labs: Laboratory Results - last 24 hr 06/03/25 06:21 MCV 90.3 MCH 32.4 MCHC 35.9 RDW 16.2 H Plt Count 32 L D MPV 11.2 Absolute Nucleated RBC 0.000 Nucleated RBC % (auto) 0.0 Anion Gap 11 L Estim Creat Clear Calc 157.5 Estimated GFR > 60 Random Glucose 86 Calcium 7.4 L Magnesium 1.2 L* Microbiology Microbiology Results: Microbiology 06/01/25 23:55 Blood Culture - Preliminary Blood - Venous No growth after 24 hours. 06/01/25 23:55 Blood Culture - Preliminary Blood - Venous No growth after 24 hours. Procedures Date of Service Date of Service: 06/03/25 Progress Note: A&P Assessment and plan (1) Abdominal pain: Status: Acute Assessment and Plan: I told the patient we will continue to follow for the time being however added that he did not really fit the profile for cholecystitis. He said he just wanted to sleep. Time Spent With Patient Time: Total time managing care of this patient today __20__ minutes. Quality Stroke Does the patient have a stroke diagnosis?: No VTE Prior VTE?: No VTE Risk Level:: Medical - moderate - high VTE Device Contraindication: Treatment Not Indicated VTE Drug Contraindication: N/A - Med Ordered
[2025-06-04] MEDS: 0.9 % Sodium Chloride Flush 3 ML SYRINGE IVFLUSH ×2 (00:31→08:37)
[2025-06-04 03:26] VITALS: BP 125/87; PULSE 98; RESP 18; TEMP 36.1; O2SAT 96
[2025-06-04 07:19] VITALS: BP 107/75; PULSE 106; RESP 16; TEMP 36.4; O2SAT 96
--- NOTE | 2025-06-04 07:25 | HO.PM.IMPN ---
Subjective Subjective Date of Service: 06/04/25 Interval History: Severe hypomagnesemia-repleted Continue phenobarb protocol Review of Systems Review of Systems: Yes all other systems are reviewed and are negative Physical Exam Exam: Exam: General: AOx3, no acute distress Resp: CTA bilaterally CVS: S1, S2, RRR GI: +BS, NT, no distention. Negative Chase's sign. Skin: Warm, dry Vital Signs: Vital Signs: Last Vital Signs Temp 97.6 F 06/04/25 07:19 Pulse 106 H 06/04/25 07:19 Resp 16 06/04/25 07:19 BP 107/75 06/04/25 07:19 Pulse Ox 96 06/04/25 07:19 O2 Del Method Room Air 06/04/25 07:19 BMI result Body Mass Index 30.5 Objective Data Active Medications Acetaminophen (Acetaminophen 325 Mg Tablet) 650 mg PO Q6H PRN PRN Reason: Pain, Mild 1-3,fever,headache Calcium Carbonate (Calcium Carbonate 750 Mg Tab.Chew) 750 mg PO Q4H PRN PRN Reason: Heartburn Clonazepam (Clonazepam 1 Mg Tablet) 1 mg PO DAILY PRN PRN Reason: Anxiety Last Admin: 06/03/25 15:39 Dose: 1 mg Documented By: ZAHIDA Fluoxetine HCl (Fluoxetine Hcl 20 Mg Capsule) 20 mg PO DAILY [facility] Last Admin: 06/03/25 07:40 Dose: 20 mg Documented By: ZAHIDA Folic Acid (Folic Acid 1 Mg Tablet) 1 mg PO DAILY [facility] Stop: 06/05/25 08:59 Last Admin: 06/03/25 07:40 Dose: 1 mg Documented By: ZAHIDA Hydromorphone HCl (Hydromorphone Hcl 0.5 Mg/0.5 Ml Syringe) 0.5 mg IVPUSH Q4H PRN; Protocol PRN Reason: Breakthrough Pain Ceftriaxone Sodium 1 gm/ (Sodium Chloride) 50 mls @ 100 mls/hr IV 2200 [facility] Last Infusion: 06/03/25 22:03 Dose: Infused Documented By: YAMILKA Metronidazole (Flagyl) 500 mg in 100 mls @ 100 mls/hr IV Q8H [facility] Last Infusion: 06/04/25 00:27 Dose: Infused Documented By: YAMILKA Magnesium Hydroxide (Milk Of Magnesia 30 Ml Oral.Susp) 30 ml PO DAILY PRN PRN Reason: Constipation Magnesium Oxide (Magnesium Oxide 400 Mg Tablet) 400 mg PO BIDPC [facility] Last Admin: 06/03/25 17:05 Dose: 400 mg Documented By: ZAHIDA Melatonin (Melatonin 3 Mg Tablet) 6 mg PO BEDTIME PRN PRN Reason: Insomnia Multivitamins/Vitamin C (Multivitamin Tablet) 1 tab PO DAILY [facility] Stop: 06/05/25 08:59 Last Admin: 06/03/25 07:40 Dose: 1 tab Documented By: ZAHIDA Pantoprazole Sodium (Pantoprazole Sodium 40 Mg/10 Ml Vial) 40 mg IVPUSH DAILY@0630 [facility] Last Admin: 06/04/25 05:42 Dose: 40 mg Documented By: YAMILKA Pharmacy Consult (Consult Rx Etoh Phenob Im/Po) 1 each MISCELLANE ONCE PRN; Protocol PRN Reason: Consult order Phenobarbital (Phenobarbital 30 Mg Tablet) 30 mg PO BID [facility] Stop: 06/05/25 21:01 Phenobarbital (Phenobarbital 15 Mg Tablet) 15 mg PO DAILY [facility] Stop: 06/07/25 09:01 Sodium Chloride (0.9 % Sodium Chloride Flush 3 Ml Syringe) 3 ml [facility]USH [facility] Last Admin: 06/04/25 00:31 Dose: 3 ml Documented By: YAMILKA Spironolactone (Spironolactone 25 Mg Tablet) 50 mg PO DAILY [facility]; Protocol Last Admin: 06/03/25 07:40 Dose: 50 mg Documented By: ZAHIDA Thiamine HCl (Thiamine Hcl 100 Mg Tablet) 100 mg PO DAILY [facility] Stop: 06/05/25 08:59 Last Admin: 06/03/25 07:40 Dose: 100 mg Documented By: ZAHIDA Labs 06/03/25 06:21 06/04/25 06:55 Labs: Laboratory Results - last 24 hr 06/03/25 06:21 Magnesium 1.2 L* Microbiology Microbiology Results: Microbiology 06/01/25 23:55 Blood Culture - Preliminary Blood - Venous No growth after 48 hours. 06/01/25 23:55 Blood Culture - Preliminary Blood - Venous No growth after 48 hours. Assessment and Plan (1) Alcohol withdrawal syndrome: Status: Acute Assessment and Plan: 55-year-old male with a past medical history of alcoholic liver cirrhosis, hypertension, anxiety, depression; to the hospital requesting alcohol detox. #Alcohol use disorder with acute alcohol withdrawal Pt initially tremulous, increased anxiety, reports drinking 25+ beers daily requiring higher doses of phenobarb IM occasionally Monitor on CIWA Thiamine, folate, multivitamins, IV PPI Addiction medicine consult Seizure precautions Monitor on telemetry # severe hypomagnesemia In the setting of alcoholic hepatic cirrhosis Repleted with IV Daily magnesium #Question of cholecystitis CT abdomen pelvis showed gallbladder wall thickening, abd U/S positive Murhphy's sign Surgery consulted do not believe that this is an acute case of cholecystitis, outpatient management # hepatic cirrhosis, esophageal varices ascites GI consulted Watch for bleeding Daily INR for synthetic function Chronic medical conditions Hypokalemia: Continues to be low; Replete with oral and IV potassium as necessary Hyponatremia: Will monitor Thrombocytopenia: Likely related to alcoholic liver disease. No signs of bleeding currently. H&H stable. Will monitor. DVT prophylaxis: SCD boots. No pharmacologic agent due to thrombocytopenia. Code status: Full code Pt will require continued hospitalization for continued treatment and monitoring of controlled alcohol detox on phenobarb protocol and severe electrolyte abnormalities. Quality Stroke Does the patient have a stroke diagnosis?: No VTE Prior VTE?: No VTE Risk Level:: Medical - moderate - high VTE Device Contraindication: Treatment Not Indicated VTE Drug Contraindication: N/A - Med Ordered
[2025-06-04 08:18] LABS: Alanine Aminotransferase 21 U/L (0-40); Albumin Level 2.5 g/dL (3.5-5.0); Alkaline Phosphatase 181 U/L (39-117); Anion Gap 10 (12-20); Aspartate Amino Transferase 121 U/L (5-37); Blood Urea Nitrogen 3 mg/dL (9-16); Calcium 7.4 mg/dL (8.4-10.2); Carbon Dioxide 21 mmol/L (22-29); Chloride 102 mmol/L (96-108); Creatinine Clr Calc Pharmacy 152.2; Estimated Glomerular Filt Rate > 60; Magnesium 1.4 mg/dL (1.6-2.6); Potassium 3.4 mmol/L (3.3-5.1); Sodium 130 mmol/L (135-145); Total Protein 7.5 g/dL (6.5-8.0)
[2025-06-04] MEDS: metroNIDAZOLE/NS 500 MG/100 ML PIGGYBACK 100 MG IV (08:36)
[2025-06-04] MEDS: Magnesium Sulfate/H2O 2 GM/50 ML PIGGYBACK IV (08:37)
--- NOTE | 2025-06-04 08:42 | PM.PNGS ---
Subjective Subjective Date of Service: 06/04/25 Interval history: Doing well, no complaints. Reports not much of an appetite but denies nausea or vomiting Physical Exam Vital Signs: Vital Signs: Last Vital Signs Temp 97.6 F 06/04/25 07:19 Pulse 106 H 06/04/25 07:19 Resp 16 06/04/25 07:19 BP 107/75 06/04/25 07:19 Pulse Ox 96 06/04/25 07:19 O2 Del Method Room Air 06/04/25 07:19 BMI result Body Mass Index 30.5 Const: General: comfortable and no acute distress Resp: Effort & Inspection: normal respiratory effort and able to speak in complete sentences GI: Inspection: No distended Palpation (GI): Soft to palpation, nontender, no guarding and Hepatomegaly present Objective Data Active Medications Acetaminophen (Acetaminophen 325 Mg Tablet) 650 mg PO Q6H PRN PRN Reason: Pain, Mild 1-3,fever,headache Calcium Carbonate (Calcium Carbonate 750 Mg Tab.Chew) 750 mg PO Q4H PRN PRN Reason: Heartburn Clonazepam (Clonazepam 1 Mg Tablet) 1 mg PO DAILY PRN PRN Reason: Anxiety Last Admin: 06/03/25 15:39 Dose: 1 mg Documented By: ZAHIDA Fluoxetine HCl (Fluoxetine Hcl 20 Mg Capsule) 20 mg PO DAILY [facility] Last Admin: 06/03/25 07:40 Dose: 20 mg Documented By: ZAHIDA Folic Acid (Folic Acid 1 Mg Tablet) 1 mg PO DAILY [facility] Stop: 06/05/25 08:59 Last Admin: 06/03/25 07:40 Dose: 1 mg Documented By: ZAHIDA Hydromorphone HCl (Hydromorphone Hcl 0.5 Mg/0.5 Ml Syringe) 0.5 mg IVPUSH Q4H PRN; Protocol PRN Reason: Breakthrough Pain Ceftriaxone Sodium 1 gm/ (Sodium Chloride) 50 mls @ 100 mls/hr IV 2200 [facility] Last Infusion: 06/03/25 22:03 Dose: Infused Documented By: YAMILKA Metronidazole (Flagyl) 500 mg in 100 mls @ 100 mls/hr IV Q8H [facility] Last Infusion: 06/04/25 00:27 Dose: Infused Documented By: YAMILKA Magnesium Sulfate (Magnesium Sulfate/H2o) 2 gm in 50 mls @ 25 mls/hr IV ONCE ONE Stop: 06/04/25 10:18 Magnesium Hydroxide (Milk Of Magnesia 30 Ml Oral.Susp) 30 ml PO DAILY PRN PRN Reason: Constipation Magnesium Oxide (Magnesium Oxide 400 Mg Tablet) 400 mg PO BIDPC [facility] Last Admin: 06/03/25 17:05 Dose: 400 mg Documented By: ZAHIDA Melatonin (Melatonin 3 Mg Tablet) 6 mg PO BEDTIME PRN PRN Reason: Insomnia Multivitamins/Vitamin C (Multivitamin Tablet) 1 tab PO DAILY [facility] Stop: 06/05/25 08:59 Last Admin: 06/03/25 07:40 Dose: 1 tab Documented By: ZAHIDA Pantoprazole Sodium (Pantoprazole Sodium 40 Mg/10 Ml Vial) 40 mg IVPUSH DAILY@0630 [facility] Last Admin: 06/04/25 05:42 Dose: 40 mg Documented By: YAMILKA Pharmacy Consult (Consult Rx Etoh Phenob Im/Po) 1 each MISCELLANE ONCE PRN; Protocol PRN Reason: Consult order Phenobarbital (Phenobarbital 30 Mg Tablet) 30 mg PO BID [facility] Stop: 06/05/25 21:01 Phenobarbital (Phenobarbital 15 Mg Tablet) 15 mg PO DAILY [facility] Stop: 06/07/25 09:01 Sodium Chloride (0.9 % Sodium Chloride Flush 3 Ml Syringe) 3 ml [facility] Last Admin: 06/04/25 00:31 Dose: 3 ml Documented By: YAMILKA Spironolactone (Spironolactone 25 Mg Tablet) 50 mg PO DAILY [facility]; Protocol Last Admin: 06/03/25 07:40 Dose: 50 mg Documented By: ZAHIDA Thiamine HCl (Thiamine Hcl 100 Mg Tablet) 100 mg PO DAILY [facility] Stop: 06/05/25 08:59 Last Admin: 06/03/25 07:40 Dose: 100 mg Documented By: ZAHIDA Labs 06/03/25 06:21 06/04/25 06:55 Labs: Laboratory Results - last 24 hr 06/03/25 06/04/25 06:21 06:55 Hold Purple Top SEE NOTE Anion Gap 10 L Estim Creat Clear Calc 152.2 Estimated GFR > 60 Random Glucose 90 Calcium 7.4 L Magnesium 1.2 L* 1.4 L* Total Bilirubin 3.2 H AST 121 H ALT 21 Alkaline Phosphatase 181 H Total Protein 7.5 Albumin 2.5 L Microbiology Microbiology Results: Microbiology 06/01/25 23:55 Blood Culture - Preliminary Blood - Venous No growth after 48 hours. 06/01/25 23:55 Blood Culture - Preliminary Blood - Venous No growth after 48 hours. Procedures Date of Service Date of Service: 06/04/25 Progress Note: A&P Assessment and plan (1) Abdominal pain: Status: Acute (2) Alcohol withdrawal syndrome: Status: Acute Plan 55-year-old with a medical history significant for alcoholic with hepatic cirrhosis and sequelae including esophageal varices and ascites presents for acute alcohol withdrawal. General surgery consulted for possible cholecystitis. Patient's clinical picture is not suggestive of acute cholecystitis. From a surgical standpoint he is doing well, denying abdominal pain, denying nausea or vomiting. Has been taking minimal p.o., states that when he is withdrawing he often does not have an appetite. Abdomen is soft and benign. No tenderness in the right upper quadrant. He looks comfortable. No current plan for surgical intervention. Can continue with diet as tolerated. At this point general surgery will sign off, please reconsult in the future as needed. Time Spent With Patient Time: Total time managing care of this patient today ____ minutes. Quality Stroke Does the patient have a stroke diagnosis?: No VTE Prior VTE?: No VTE Risk Level:: Medical - moderate - high VTE Device Contraindication: Treatment Not Indicated VTE Drug Contraindication: N/A - Med Ordered
[2025-06-04 11:03] VITALS: BP 127/84; PULSE 118; RESP 16; TEMP 36.9; O2SAT 94
--- NOTE | 2025-06-04 11:19 | MHC.CM.PN ---
Per ROUNDS, Patient is not yet medically cleared for dc (Phenobarbital).
--- NOTE | 2025-06-04 15:04 | PC.NURSE ---
pt stated staff can give information to sister Tesha. Per Tesha, pt is currently homeless since he lived with his mother but the mother no longer wants him in her home. The sister also stated that he does not have a fiance but a girlfriend named Blanche and she partakes and supplies the pt with drugs and alcohol. and CM informed of the situation. Addiction med will be contacted.
--- NOTE | 2025-06-04 15:13 | MHC.RECOVRN ---
T/W met with pt. in [phone] to provide further education/discussion on GRANT. We reviewed available options. Pt appears to be leaning toward naltrexone but is not 100% decided. Would like to think about it a little more before decision made. Pt agreed to meet with [facility] provider tomorrow to further discuss and possible choose one. Clinic appt will be arranged once pt. makes his decision on medication. [facility] available PRN
[2025-06-04 16:00] VITALS: BP 113/75; PULSE 120; RESP 18; TEMP 36.8; O2SAT 98
--- NOTE | 2025-06-04 16:59 | HO.ADDICT_ITS ---
History of Present Illness Date of Service: 06/04/2025 Chief Complaint: etoh Reason for Consult: AUD Sources of Information: patient interviewed and chart reviewed HPI Narrative: Patient is a 55 year old male with AUD and liver cirrhosis, who presented to [facility] requesting assistance with ATS placement. Found to be in acute withdrawal, started on phenobarbital and medically admitted. Notes reviewed, including double end trimmer barry. Patient reporting long history of AUD. Prior to admission was drinking approx 20-24 beers daily. He denies any history of treatment, aside from what sounds like brief IOP admission several years ago. Today he is awake, alert, pleasant with slow speech, circumstantial and tangential Very mild tremor, difficulty with right shoulder --reports much improved since admission States he is feeling overall much better At home minimal appetite--returning here While he is engaged with PCP, he states he has not been entirely honest with them about the extent of his alcohol use Discussed goals related to alcohol use-mixed motivation, limited supports. He states that he wishes to abstain, however his friends all drink quite a bit and his housing does not seem to be stable. Labs reviewed-low Mg with daily repletion Medical Evaluation Reviewed: Yes Review of Systems Constitutional: Reports as per HPI Diagnostics Vital Signs (24Hr): Vital Signs - 24 hr 06/03/25 19:54 06/03/25 23:24 06/04/25 03:26 Temperature 98.7 F 97.5 F 96.9 F Pulse Rate 97 81 98 Respiratory Rate 18 18 18 Blood Pressure 137/85 134/88 125/87 Pulse Oximetry 96 96 96 Oxygen Delivery Method Room Air Room Air Room Air 06/04/25 07:19 06/04/25 11:03 06/04/25 16:00 Temperature 97.6 F 98.4 F 98.3 F Pulse Rate 106 H 118 H 120 H Respiratory Rate 16 16 18 Blood Pressure 107/75 127/84 113/75 Pulse Oximetry 96 94 98 Oxygen Delivery Method Room Air Room Air Room Air BMI result Body Mass Index 30.5 Labs 06/03/25 06:21 06/05/25 07:04 Labs: Laboratory Results - last 48 hr 06/03/25 06/04/25 06:21 06:55 WBC 4.2 L RBC 3.18 L Hgb 10.3 L Hct 28.7 L MCV 90.3 MCH 32.4 MCHC 35.9 RDW 16.2 H Plt Count 32 L D MPV 11.2 Absolute Nucleated RBC 0.000 Nucleated RBC % (auto) 0.0 Hold Purple Top SEE NOTE Sodium 132 L 130 L Potassium 2.9 L* D 3.4 Chloride 102 102 Carbon Dioxide 22 21 L Anion Gap 11 L 10 L BUN 4 L 3 L Creatinine 0.58 0.60 Estim Creat Clear Calc 157.5 152.2 Estimated GFR > 60 > 60 Random Glucose 86 90 Calcium 7.4 L 7.4 L Magnesium 1.2 L* 1.4 L* Total Bilirubin 3.2 H AST 121 H ALT 21 Alkaline Phosphatase 181 H Total Protein 7.5 Albumin 2.5 L Mental Status Exam Mental Status Exam Patient Appearance: Appropriate Level of Consciousness: Awake, Appropriate and Alert Patient Behavior: Appropriate and Talkative Affect Description: Calm Speech Pattern: Long Pauses (slowed speech ) Thought Content: positive for [place], positive for Circumstantial and positive for Tangential Judgement: Fair Medications Medications Current Medications Acetaminophen (Acetaminophen 325 Mg Tablet) 650 mg PO Q6H PRN PRN Reason: Pain, Mild 1-3,fever,headache Last Admin: 06/04/25 13:19 Dose: 650 mg Calcium Carbonate (Calcium Carbonate 750 Mg Tab.Chew) 750 mg PO Q4H PRN PRN Reason: Heartburn Clonazepam (Clonazepam 1 Mg Tablet) 1 mg PO DAILY PRN PRN Reason: Anxiety Last Admin: 06/04/25 15:37 Dose: 1 mg Fluoxetine HCl (Fluoxetine Hcl 20 Mg Capsule) 20 mg PO DAILY [facility] Last Admin: 06/04/25 08:41 Dose: 20 mg Folic Acid (Folic Acid 1 Mg Tablet) 1 mg PO DAILY [facility] Stop: 06/05/25 08:59 Last Admin: 06/04/25 08:41 Dose: 1 mg Hydromorphone HCl (Hydromorphone Hcl 0.5 Mg/0.5 Ml Syringe) 0.5 mg IVPUSH Q4H PRN; Protocol PRN Reason: Breakthrough Pain Ceftriaxone Sodium 1 gm/ (Sodium Chloride) 50 mls @ 100 mls/hr IV 2200 [facility] Last Infusion: 06/03/25 22:03 Dose: Infused Magnesium Hydroxide (Milk Of Magnesia 30 Ml Oral.Susp) 30 ml PO DAILY PRN PRN Reason: Constipation Magnesium Oxide (Magnesium Oxide 400 Mg Tablet) 400 mg PO BIDPC [facility] Last Admin: 06/04/25 16:30 Dose: 400 mg Melatonin (Melatonin 3 Mg Tablet) 6 mg PO BEDTIME PRN PRN Reason: Insomnia Metronidazole (Metronidazole 500 Mg Tablet) 500 mg PO TID [facility] Last Admin: 06/04/25 14:37 Dose: 500 mg Multivitamins/Vitamin C (Multivitamin Tablet) 1 tab PO DAILY [facility] Stop: 06/05/25 08:59 Last Admin: 06/04/25 08:41 Dose: 1 tab Omeprazole (Omeprazole 20 Mg Capsule.Dr) 20 mg PO DAILY@0630 [facility] Pharmacy Consult (Consult Rx Etoh Phenob Im/Po) 1 each MISCELLANE ONCE PRN; Protocol PRN Reason: Consult order Phenobarbital (Phenobarbital 30 Mg Tablet) 30 mg PO BID [facility] Stop: 06/05/25 21:01 Last Admin: 06/04/25 08:41 Dose: 30 mg Phenobarbital (Phenobarbital 15 Mg Tablet) 15 mg PO DAILY [facility] Stop: 06/07/25 09:01 Sodium Chloride (0.9 % Sodium Chloride Flush 3 Ml Syringe) [facility] Last Admin: 06/04/25 11:31 Dose: Not Given Spironolactone (Spironolactone 25 Mg Tablet) 50 mg PO DAILY [facility]; Protocol Last Admin: 06/04/25 08:42 Dose: 50 mg Thiamine HCl (Thiamine Hcl 100 Mg Tablet) 100 mg PO DAILY [facility] Stop: 06/05/25 08:59 Last Admin: 06/04/25 08:41 Dose: 100 mg Allergies Allergies Allergy/AdvReac Type Severity Reaction Status Date / Time No Known Allergies Allergy Verified 06/01/25 18:46 Assessment & Plan Assessment & Plan (1) Alcohol use disorder, severe, dependence: Status: Acute Code(s): F10.20 - Alcohol dependence, uncomplicated Assessment and Plan: * withdrawal much improved * should continue high dose thiamine outpatient * considering CSS-double end trimmer to follow up in AM Total time managing care of this patient today ____ minutes. PMFSH Social History Social History Household Members: None Housing: House Do you presently have visiting nurse or other home services: No Alcohol intake: current Alcohol intake frequency: 3 or more drinks per day Alcohol type: beer Patient Tobacco Use Status: Former Tobacco user service: No
[2025-06-04 20:00] VITALS: BP 121/62; PULSE 85; RESP 16; TEMP 37; O2SAT 96
[2025-06-04 23:24] VITALS: BP 104/61; PULSE 107; RESP 18; TEMP 36.3; O2SAT 96
[2025-06-05] MEDS: 0.9 % Sodium Chloride Flush 3 ML SYRINGE IVFLUSH ×4 (02:07→20:15)
[2025-06-05 03:15] VITALS: BP 105/54; PULSE 117; RESP 18; TEMP 36.9; O2SAT 96
[2025-06-05 07:35] VITALS: BP 107/72; PULSE 100; RESP 20; TEMP 37.3; O2SAT 96
--- NOTE | 2025-06-05 08:25 | P.PNIM_ITS ---
Subjective Subjective Date of Service: 06/05/25 Interval History: Completing phenobarb protocol today Medically optimized awaiting rehab placement Review of Systems Review of Systems: Yes all other systems are reviewed and are negative Physical Exam 2 Exam: Exam: General: AOx3, no acute distress Resp: CTA bilaterally CVS: S1, S2, RRR GI: +BS, NT, no distention. Negative Chase's sign. Skin: Warm, dry Vital Signs: Vital Signs: Last Vital Signs Temp 99.1 F 06/05/25 07:35 Pulse 100 06/05/25 07:35 Resp 20 06/05/25 07:35 BP 107/72 06/05/25 07:35 Pulse Ox 96 06/05/25 07:35 O2 Del Method Room Air 06/05/25 07:35 BMI result Body Mass Index 30.5 Objective Data Active Medications Acetaminophen (Acetaminophen 325 Mg Tablet) 650 mg PO Q6H PRN PRN Reason: Pain, Mild 1-3,fever,headache Last Admin: 06/04/25 13:19 Dose: 650 mg Documented By: KYLEE Calcium Carbonate (Calcium Carbonate 750 Mg Tab.Chew) 750 mg PO Q4H PRN PRN Reason: Heartburn Clonazepam (Clonazepam 1 Mg Tablet) 1 mg PO DAILY PRN PRN Reason: Anxiety Last Admin: 06/04/25 15:37 Dose: 1 mg Documented By: KYLEE Fluoxetine HCl (Fluoxetine Hcl 20 Mg Capsule) 20 mg PO DAILY [facility] Last Admin: 06/04/25 08:41 Dose: 20 mg Documented By: ROSA Folic Acid (Folic Acid 1 Mg Tablet) 1 mg PO DAILY [facility] Stop: 06/05/25 08:59 Last Admin: 06/04/25 08:41 Dose: 1 mg Documented By: ROSA Hydromorphone HCl (Hydromorphone Hcl 0.5 Mg/0.5 Ml Syringe) 0.5 mg IVPUSH Q4H PRN; Protocol PRN Reason: Breakthrough Pain Ceftriaxone Sodium 1 gm/ (Sodium Chloride) 50 mls @ 100 mls/hr IV 2200 [facility] Last Infusion: 06/04/25 21:50 Dose: Infused Documented By: YOEL Magnesium Hydroxide (Milk Of Magnesia 30 Ml Oral.Susp) 30 ml PO DAILY PRN PRN Reason: Constipation Magnesium Oxide (Magnesium Oxide 400 Mg Tablet) 400 mg PO BIDPC [facility] Last Admin: 06/04/25 16:30 Dose: 400 mg Documented By: KYLEE Melatonin (Melatonin 3 Mg Tablet) 6 mg PO BEDTIME PRN PRN Reason: Insomnia Metronidazole (Metronidazole 500 Mg Tablet) 500 mg PO TID [facility] Last Admin: 06/04/25 21:02 Dose: 500 mg Documented By: YOEL Multivitamins/Vitamin C (Multivitamin Tablet) 1 tab PO DAILY [facility] Stop: 06/05/25 08:59 Last Admin: 06/04/25 08:41 Dose: 1 tab Documented By: ROSA Omeprazole (Omeprazole 20 Mg Capsule.Dr) 20 mg PO DAILY@0630 [facility] Last Admin: 06/05/25 05:47 Dose: 20 mg Documented By: CLEVE Pharmacy Consult (Consult Rx Etoh Phenob Im/Po) 1 each MISCELLANE ONCE PRN; Protocol PRN Reason: Consult order Phenobarbital (Phenobarbital 30 Mg Tablet) 30 mg PO BID [facility] Stop: 06/05/25 21:01 Last Admin: 06/04/25 21:02 Dose: 30 mg Documented By: YOEL Phenobarbital (Phenobarbital 15 Mg Tablet) 15 mg PO DAILY [facility] Stop: 06/07/25 09:01 Sodium Chloride (0.9 % Sodium Chloride Flush 3 Ml Syringe) 3 ml IVFSH [facility] Last Admin: 06/05/25 02:07 Dose: 3 ml Documented By: YOEL Spironolactone (Spironolactone 25 Mg Tablet) 50 mg PO DAILY [facility]; Protocol Last Admin: 06/04/25 08:42 Dose: 50 mg Documented By: ROSA Thiamine HCl (Thiamine Hcl 100 Mg Tablet) 100 mg PO DAILY [facility] Stop: 06/05/25 08:59 Last Admin: 06/04/25 08:41 Dose: 100 mg Documented By: ROSA Labs 06/03/25 06:21 06/05/25 07:04 Assessment and Plan (1) Alcohol withdrawal syndrome: Status: Acute Assessment and Plan: 55-year-old male with a past medical history of alcoholic liver cirrhosis, hypertension, anxiety, depression; to the hospital requesting alcohol detox. #Alcohol use disorder with acute alcohol withdrawal Pt initially tremulous, increased anxiety, reports drinking 25+ beers daily requiring higher doses of phenobarb IM occasionally Completed phenobarb protocol today Patient states he is homeless and field nurse case manager working on care home Thiamine, folate, multivitamins, IV PPI Addiction medicine consult Seizure precautions Monitor on telemetry # severe hypomagnesemia In the setting of alcoholic hepatic cirrhosis Repleted with IV Daily magnesium check and repletion # HypoNa Likely due to etoh, asymptomatic, f/up OP with PCP # hypoK Etoh withdrawal , replaced to goal #Question of cholecystitis CT abdomen pelvis showed gallbladder wall thickening, abd U/S positive Murhphy's sign Surgery consulted do not believe that this is an acute case of cholecystitis, outpatient management # hepatic cirrhosis, esophageal varices ascites GI consulted Watch for bleeding Daily INR for synthetic function Chronic medical conditions Hypokalemia: Continues to be low; Replete with oral and IV potassium as necessary Hyponatremia: Will monitor Thrombocytopenia: Likely related to alcoholic liver disease. No signs of bleeding currently. H&H stable. Will monitor. DVT prophylaxis: SCD boots. No pharmacologic agent due to thrombocytopenia. Code status: Full code Medically optimized, patient states he is homeless and field nurse case manager working on a care home placement Quality Stroke Does the patient have a stroke diagnosis?: No VTE Prior VTE?: No VTE Risk Level:: Medical - moderate - high VTE Device Contraindication: Treatment Not Indicated VTE Drug Contraindication: N/A - Med Ordered
[2025-06-05 08:31] LABS: Alanine Aminotransferase 18 U/L (0-40); Albumin Level 2.5 g/dL (3.5-5.0); Alkaline Phosphatase 198 U/L (39-117); Anion Gap 9 (12-20); Aspartate Amino Transferase 105 U/L (5-37); Blood Urea Nitrogen 3 mg/dL (9-16); Calcium 7.2 mg/dL (8.4-10.2); Carbon Dioxide 22 mmol/L (22-29); Chloride 100 mmol/L (96-108); Creatinine Clr Calc Pharmacy 149.7; Estimated Glomerular Filt Rate > 60; Potassium 3.0 mmol/L (3.3-5.1); Sodium 128 mmol/L (135-145); Total Protein 7.2 g/dL (6.5-8.0)
[2025-06-05] MEDS: Potassium Chloride ER 20 MEQ TAB.ER.PRT 40 MEQ PO (09:24)
--- NOTE | 2025-06-05 10:38 | MHC.RECOVRN ---
Met with pt to offer ongoing support related to AUD. Pt reports he is no longer experiencing withdrawal symptoms and is agreeable to local CSS placement KENJI's obtained and referrals being sent to [facility] and [facility] on pt's behalf. ACS team to continue to follow up regarding placement. CM is aware.
[2025-06-05 11:24] VITALS: BP 108/62; PULSE 94; RESP 20; TEMP 36.4; O2SAT 96
[2025-06-05 11:45] LABS: Magnesium 1.4 mg/dL (1.6-2.6)
--- NOTE | 2025-06-05 12:10 | P.CDIM_ITS ---
PROVIDER RESPONSE TEXT: To clarify, the appropriate diagnosis supported by the clinical indicators: Pancytopenia QUERY TEXT: PHYSICIAN'S DOCUMENTATION REQUEST Date of Query: 06/05/2025 08:45 AM EST Patient Name: John Armas Admit Date: 06/02/2025 Dear Kely Lopez MD, A review of the medical record indicates additional documentation may be needed. Please review below and update the documentation accordingly. Clinical Indicators: LABS: WBC 4.2 RBC 3.18 PLT 32 L Alcoholic liver disease with acute alcohol withdrawal, electrolyte abnormalities. No pharmacologic agent due to thrombocytopenia. Based on the above, is there a diagnosis that correlates with these lab findings for this admission? Pancytopenia Anemia of chronic disease Other specified Other (explain) Clinically unable to determine (explain) Thank you, Julia Meyer, CCS, CDIS Use of terms such as suspected, likely, concern for, or probable (associated with a specific diagnosis that is being evaluated, monitored, or treated as if it exists) are acceptable and can be coded in the inpatient setting, when documented at the time of discharge. Please use your independent medical judgment in providing your response. THIS QUERY IS PART OF THE PERMANENT MEDICAL RECORD
--- NOTE | 2025-06-05 12:10 | P.CDIM_ITS ---
PROVIDER RESPONSE TEXT: To clarify, the appropriate diagnosis supported by the clinical indicators: Gastritis: etoh liver cirrhosis , varices and possible gastritis QUERY TEXT: PHYSICIAN'S DOCUMENTATION REQUEST Date of Query: 06/05/2025 09:24 AM EST Patient Name: John Armas Admit Date: 06/02/2025 Dear Kely Lopez MD, A review of the medical record indicates additional documentation may be needed. Please review below and update the documentation accordingly. Clinical Indicators: H7P 06/02/25 - Gastritis, IV PPI Advance diet as tolerated. Nausea/diarrhea/abdominal discomfort Alcohol liver disease in withdrawals, tremulous. Electrolyte abnormalities Based on the above, could you clarify any further specifics to the documented Gastritis for this admission? Gastritis due to diet deficiency, acute, chronic, alcoholic, spastic, viral, hypertrophic etc. Other specifics Other (explain) Clinically unable to determine (explain) Thank you, Julia Meyer, CCS, CDIS Use of terms such as suspected, likely, concern for, or probable (associated with a specific diagnosis that is being evaluated, monitored, or treated as if it exists) are acceptable and can be coded in the inpatient setting, when documented at the time of discharge. Please use your independent medical judgment in providing your response. THIS QUERY IS PART OF THE PERMANENT MEDICAL RECORD
--- NOTE | 2025-06-05 12:30 | MHC.CM.PN ---
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
[2025-06-05 13:46] LABS: MANUAL DIFF FLAG NO
[2025-06-05] MEDS: Magnesium Sulfate/H2O 2 GM/50 ML PIGGYBACK IV (13:48)
[2025-06-05 14:06] LABS: Hematocrit 29.0 % (42.0-52.0); Hemoglobin 10.6 g/dl (14.0-18.0); Imm Gran Abs Auto 0.03 X10*3/uL (0.00-0.03); Imm Gran Pct Auto 0.6 % (0.0-0.4); Lymphocytes Absolute Auto 1.3 X10*3/uL (1.2-4.9); Mean Corpuscular HGB Conc 36.6 g/dl (31.0-36.0); Mean Corpuscular Hemoglobin 32.8 pg (27.0-33.0); Mean Corpuscular Volume 89.8 fL (80.0-98.0); NRBC Abs Auto 0.000 X10*3/uL (0.0-0.012); NRBC Pct Auto 0.0 /100WBC (0.0-0.2); Platelet Count 37 X10*3/uL (160-400); Red Blood Count 3.23 X10*6/uL (4.60-5.80); White Blood Count 4.7 X10*3/uL (4.8-10.8)
[2025-06-05 15:33] VITALS: BP 109/59; PULSE 81; RESP 18; TEMP 36.7; O2SAT 95
[2025-06-05 20:00] VITALS: BP 124/70; PULSE 113; RESP 18; TEMP 36.9; O2SAT 95
[2025-06-05 23:57] VITALS: BP 100/57; PULSE 103; RESP 16; TEMP 36.7; O2SAT 96
[2025-06-06] VITALS (8 sets, daily range): BP systolic 96–112; BP diastolic 51–76; PULSE 80–103; RESP 16–18; TEMP 36.6–37.2; O2SAT 94–99
--- NOTE | 2025-06-06 07:38 | HO.PM.IMPN ---
Subjective Subjective Date of Service: 06/06/25 Interval History: Completing phenobarb protocol yest Medically optimized awaiting rehab placement Review of Systems Review of Systems: Yes all other systems are reviewed and are negative Physical Exam Exam: Exam: General: AOx3, no acute distress Resp: CTA bilaterally CVS: S1, S2, RRR GI: +BS, NT, no distention. Negative Chase's sign. Skin: Warm, dry Vital Signs: Vital Signs: Last Vital Signs Temp 98.1 F 06/06/25 07:30 Pulse 96 06/06/25 07:30 Resp 18 06/06/25 07:30 BP 101/65 06/06/25 07:30 Pulse Ox 99 06/06/25 07:30 O2 Del Method Room Air 06/06/25 07:30 BMI result Body Mass Index 30.5 Objective Data Active Medications Acetaminophen (Acetaminophen 325 Mg Tablet) 650 mg PO Q6H PRN PRN Reason: Pain, Mild 1-3,fever,headache Last Admin: 06/05/25 20:14 Dose: 650 mg Documented By: FREEMAN Calcium Carbonate (Calcium Carbonate 750 Mg Tab.Chew) 750 mg PO Q4H PRN PRN Reason: Heartburn Clonazepam (Clonazepam 1 Mg Tablet) 1 mg PO DAILY PRN PRN Reason: Anxiety Last Admin: 06/05/25 17:21 Dose: 1 mg Documented By: ANALILIA Fluoxetine HCl (Fluoxetine Hcl 20 Mg Capsule) 20 mg PO DAILY [facility] Last Admin: 06/05/25 09:23 Dose: 20 mg Documented By: ANALILIA Hydromorphone HCl (Hydromorphone Hcl 0.5 Mg/0.5 Ml Syringe) 0.5 mg IVPUSH Q4H PRN; Protocol PRN Reason: Breakthrough Pain Ceftriaxone Sodium 1 gm/ (Sodium Chloride) 50 mls @ 100 mls/hr IV 2200 [facility] Last Infusion: 06/05/25 22:40 Dose: Infused Documented By: FREEMAN Magnesium Hydroxide (Milk Of Magnesia 30 Ml Oral.Susp) 30 ml PO DAILY PRN PRN Reason: Constipation Magnesium Oxide (Magnesium Oxide 400 Mg Tablet) 800 mg PO BIDPC [facility] Last Admin: 06/05/25 17:12 Dose: 800 mg Documented By: ANALILIA Melatonin (Melatonin 3 Mg Tablet) 6 mg PO BEDTIME PRN PRN Reason: Insomnia Last Admin: 06/05/25 20:14 Dose: 6 mg Documented By: FREEMAN Metronidazole (Metronidazole 500 Mg Tablet) 500 mg PO TID [facility] Last Admin: 06/05/25 20:14 Dose: 500 mg Documented By: FREEMAN Omeprazole (Omeprazole 20 Mg Capsule.Dr) 20 mg PO DAILY@0630 [facility] Last Admin: 06/06/25 06:06 Dose: 20 mg Documented By: FREEMAN Pharmacy Consult (Consult Rx Etoh Phenob Im/Po) 1 each MISCELLANE ONCE PRN; Protocol PRN Reason: Consult order Phenobarbital (Phenobarbital 15 Mg Tablet) 15 mg PO DAILY [facility] Stop: 06/07/25 09:01 Sodium Chloride (0.9 % Sodium Chloride Flush 3 Ml Syringe) 3 ml IVFLUSH QSHIFT [facility] Last Admin: 06/05/25 20:15 Dose: 3 ml Documented By: FREEMAN Spironolactone (Spironolactone 25 Mg Tablet) 50 mg PO DAILY [facility]; Protocol Last Admin: 06/05/25 09:23 Dose: 50 mg Documented By: BRENNACIAV Labs 06/06/25 07:11 06/06/25 07:11 Labs: Laboratory Results - last 24 hr 06/05/25 06/05/25 07:04 13:39 MCV 89.8 MCH 32.8 MCHC 36.6 H RDW 17.2 H Plt Count 37 L MPV 12.9 H Immature Gran % (Auto) 0.6 H Neut % (Auto) 58.5 Lymph % (Auto) 27.9 [place] % (Auto) 10.0 Eos % (Auto) 2.1 Baso % (Auto) 0.9 Lymph # (Auto) 1.3 [place] # (Auto) 0.5 Eos # (Auto) 0.1 Baso # (Auto) 0.0 Abs Immat Gran (auto) 0.03 Absolute Neuts (auto) 2.7 Absolute Nucleated RBC 0.000 Nucleated RBC % (auto) 0.0 Anion Gap 9 L Estim Creat Clear Calc 149.7 Estimated GFR > 60 Random Glucose 112 Calcium 7.2 L Magnesium 1.4 L* Total Bilirubin 3.2 H AST 105 H ALT 18 Alkaline Phosphatase 198 H Total Protein 7.2 Albumin 2.5 L Assessment and Plan (1) Alcohol withdrawal syndrome: Status: Acute Assessment and Plan: 55-year-old male with a past medical history of alcoholic liver cirrhosis, hypertension, anxiety, depression; to the hospital requesting alcohol detox. 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 Thiamine, folate, multivitamins, IV PPI Addiction medicine consult Seizure precautions Monitor on telemetry # severe hypomagnesemia In the setting of alcoholic hepatic cirrhosis Repleted with IV daily , until today, will be DC on Mg po bid Daily magnesium check and repletion # HypoNa Likely due to etoh, asymptomatic, f/up OP with PCP # hypoK Etoh withdrawal , replaced to goal, will need po K at the time of DC #Question of cholecystitis CT abdomen pelvis showed gallbladder wall thickening, abd U/S positive Murhphy's sign Surgery consulted do not believe that this is an acute case of cholecystitis, outpatient management # hepatic cirrhosis, esophageal varices ascites GI consulted Watch for bleeding Daily INR for synthetic function Chronic medical conditions Thrombocytopenia: Likely related to alcoholic liver disease. No signs of bleeding currently. H&H stable. Will monitor. DVT prophylaxis: SCD boots. No pharmacologic agent due to thrombocytopenia. Code status: Full code Medically optimized, patient states he is homeless and human services case manager working on a long term placement Quality Stroke Does the patient have a stroke diagnosis?: No VTE Prior VTE?: No VTE Risk Level:: Medical - moderate - high VTE Device Contraindication: Treatment Not Indicated VTE Drug Contraindication: N/A - Med Ordered
[2025-06-06 08:18] LABS: INTERNATIONAL NORM RATIO 1.9 (0.9-1.1); Prothrombin Time 22.4 SEC (11.2-13.5)
[2025-06-06] MEDS: PHENobarbital 15 MG TABLET PO (08:21)
[2025-06-06] MEDS: 0.9 % Sodium Chloride Flush 3 ML SYRINGE IVFLUSH ×2 (08:25→16:43)
[2025-06-06 08:33] LABS: Hemoglobin 10.4 g/dl (14.0-18.0); Imm Gran Abs Auto 0.01 X10*3/uL (0.00-0.03); Imm Gran Pct Auto 0.2 % (0.0-0.4); NRBC Abs Auto 0.000 X10*3/uL (0.0-0.012); NRBC Pct Auto 0.0 /100WBC (0.0-0.2)
[2025-06-06 08:34] LABS: Hematocrit 29.1 % (42.0-52.0); Lymphocytes Absolute Auto 1.2 X10*3/uL (1.2-4.9); Mean Corpuscular HGB Conc 35.7 g/dl (31.0-36.0); Mean Corpuscular Hemoglobin 32.3 pg (27.0-33.0); Mean Corpuscular Volume 90.4 fL (80.0-98.0); Red Blood Count 3.22 X10*6/uL (4.60-5.80)
[2025-06-06 08:38] LABS: Platelet Count 43 X10*3/uL (160-400); White Blood Count 4.5 X10*3/uL (4.8-10.8)
[2025-06-06 08:48] LABS: Alanine Aminotransferase 15 U/L (0-40); Albumin Level 2.4 g/dL (3.5-5.0); Alkaline Phosphatase 214 U/L (39-117); Anion Gap 8 (12-20); Aspartate Amino Transferase 93 U/L (5-37); Blood Urea Nitrogen 4 mg/dL (9-16); Calcium 7.2 mg/dL (8.4-10.2); Carbon Dioxide 22 mmol/L (22-29); Chloride 100 mmol/L (96-108); Creatinine Clr Calc Pharmacy 142.7; Estimated Glomerular Filt Rate > 60; Magnesium 1.6 mg/dL (1.6-2.6); Potassium 3.1 mmol/L (3.3-5.1); Sodium 127 mmol/L (135-145); Total Protein 7.0 g/dL (6.5-8.0)
--- NOTE | 2025-06-06 10:42 | MHC.CM.PN ---
Per ROUND, Patient is not yet medically cleared for dc(Na trending down).
[2025-06-06] MEDS: Sodium Chloride Tab 1 GM TABLET PO ×2 (12:36→22:15)
[2025-06-06] MEDS: Phytonadione (Vit K1) Oral 10 MG/ML AMPUL 5 MG PO (22:15)
[2025-06-07 03:14] VITALS: BP 121/59; PULSE 86; RESP 18; TEMP 36.6; O2SAT 95
[2025-06-07 07:10] LABS: MANUAL DIFF FLAG NO
[2025-06-07 07:23] LABS: INTERNATIONAL NORM RATIO 1.7 (0.9-1.1); Prothrombin Time 20.3 SEC (11.2-13.5)
--- NOTE | 2025-06-07 07:26 | HO.PM.IMPN ---
Subjective Subjective Date of Service: 06/07/25 Interval History: Completing phenobarb protocol yest Medically optimized awaiting rehab placement Review of Systems Review of Systems: Yes all other systems are reviewed and are negative Physical Exam Exam: Exam: General: AOx3, no acute distress Resp: CTA bilaterally CVS: S1, S2, RRR GI: +BS, NT, no distention. Negative Chase's sign. Skin: Warm, dry Vital Signs: Vital Signs: Last Vital Signs Temp 97.9 F 06/07/25 03:14 Pulse 86 06/07/25 03:14 Resp 18 06/07/25 03:14 BP 121/59 L 06/07/25 03:14 Pulse Ox 95 06/07/25 03:14 O2 Del Method Room Air 06/07/25 03:14 BMI result Body Mass Index 30.5 Objective Data Active Medications Acetaminophen (Acetaminophen 325 Mg Tablet) 650 mg PO Q6H PRN PRN Reason: Pain, Mild 1-3,fever,headache Last Admin: 06/06/25 16:40 Dose: 650 mg Documented By: REYNALDO Calcium Carbonate (Calcium Carbonate 750 Mg Tab.Chew) 750 mg PO Q4H PRN PRN Reason: Heartburn Clonazepam (Clonazepam 1 Mg Tablet) 1 mg PO DAILY PRN PRN Reason: Anxiety Last Admin: 06/06/25 16:40 Dose: 1 mg Documented By: REYNALDO Fluoxetine HCl (Fluoxetine Hcl 20 Mg Capsule) 20 mg PO DAILY [facility] Last Admin: 06/06/25 08:21 Dose: 20 mg Documented By: REYNALDO Ceftriaxone Sodium 1 gm/ (Sodium Chloride) 50 mls @ 100 mls/hr IV 2200 [facility] Last Infusion: 06/06/25 23:14 Dose: Infused Documented By: SARBJIT Magnesium Hydroxide (Milk Of Magnesia 30 Ml Oral.Susp) 30 ml PO DAILY PRN PRN Reason: Constipation Magnesium Oxide (Magnesium Oxide 400 Mg Tablet) 800 mg PO BIDPC [facility] Last Admin: 06/06/25 16:40 Dose: 800 mg Documented By: REYNALDO Melatonin (Melatonin 3 Mg Tablet) 6 mg PO BEDTIME PRN PRN Reason: Insomnia Last Admin: 06/05/25 20:14 Dose: 6 mg Documented By: FREEMAN Metronidazole (Metronidazole 500 Mg Tablet) 500 mg PO TID [facility] Last Admin: 06/06/25 22:15 Dose: 500 mg Documented By: SARBJIT Omeprazole (Omeprazole 20 Mg Capsule.Dr) 20 mg PO DAILY@0630 [facility] Last Admin: 06/07/25 06:14 Dose: 20 mg Documented By: SARBJIT Pharmacy Consult (Consult Rx Etoh Phenob Im/Po) 1 each MISCELLANE ONCE PRN; Protocol PRN Reason: Consult order Phenobarbital (Phenobarbital 15 Mg Tablet) 15 mg PO DAILY [facility] Stop: 06/07/25 09:01 Last Admin: 06/06/25 08:21 Dose: 15 mg Documented By: REYNALDO Sodium Chloride (0.9 % Sodium Chloride Flush 3 Ml Syringe) 3 ml IVFLUSH QSHIFT [facility] Last Admin: 06/06/25 22:17 Dose: Not Given Documented By: SARBJIT Non-Admin Reason: Previously Administered Sodium Chloride (Sodium Chloride Tab 1 Gm Tablet) 1 gm PO BID [facility] Last Admin: 06/06/25 22:15 Dose: 1 gm Documented By: SARBJIT Spironolactone (Spironolactone 25 Mg Tablet) 50 mg PO DAILY [facility]; Protocol Last Admin: 06/06/25 08:21 Dose: 50 mg Documented By: REYNALDO Labs 06/07/25 06:33 06/07/25 06:33 Labs: Laboratory Results - last 24 hr 06/06/25 06/07/25 07:11 06:33 MCV 90.4 MCH 32.3 MCHC 35.7 RDW 17.1 H Plt Count 43 L MPV 11.1 Immature Gran % (Auto) 0.2 Neut % (Auto) 61.1 Lymph % (Auto) 27.1 [place] % (Auto) 8.7 Eos % (Auto) 1.8 Baso % (Auto) 1.1 Lymph # (Auto) 1.2 [place] # (Auto) 0.4 Eos # (Auto) 0.1 Baso # (Auto) 0.1 Abs Immat Gran (auto) 0.01 Absolute Neuts (auto) 2.7 Absolute Nucleated RBC 0.000 Nucleated RBC % (auto) 0.0 PT 22.4 H 20.3 H INR 1.9 H 1.7 H Anion Gap 8 L Estim Creat Clear Calc 142.7 Estimated GFR > 60 Random Glucose 137 H Calcium 7.2 L Magnesium 1.6 Total Bilirubin 3.4 H AST 93 H ALT 15 Alkaline Phosphatase 214 H Total Protein 7.0 Albumin 2.4 L Microbiology Microbiology Results: Microbiology 06/01/25 23:55 Blood Culture - Final Blood - Venous No growth after 5 days. 06/01/25 23:55 Blood Culture - Final Blood - Venous No growth after 5 days. Assessment and Plan (1) Alcohol withdrawal syndrome: Status: Acute Assessment and Plan: 55-year-old male with a past medical history of alcoholic liver cirrhosis, hypertension, anxiety, depression; to the hospital requesting alcohol detox. 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 Thiamine, folate, multivitamins, IV PPI Addiction medicine consult Seizure precautions Monitor on telemetry # severe hypomagnesemia In the setting of alcoholic hepatic cirrhosis Repleted with IV daily , until today, will be DC on Mg po bid Daily magnesium check and repletion # HypoNa Likely due to etoh, asymptomatic, f/up OP with PCP # hypoK Etoh withdrawal , replaced to goal, will need po K at the time of DC #Question of cholecystitis CT abdomen pelvis showed gallbladder wall thickening, abd U/S positive Murhphy's sign Surgery consulted do not believe that this is an acute case of cholecystitis, outpatient management # hepatic cirrhosis, esophageal varices ascites GI consulted Watch for bleeding Daily INR for synthetic function Chronic medical conditions Thrombocytopenia: Likely related to alcoholic liver disease. No signs of bleeding currently. H&H stable. Will monitor. DVT prophylaxis: SCD boots. No pharmacologic agent due to thrombocytopenia. 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
[2025-06-07 07:32] VITALS: BP 102/63; PULSE 96; RESP 18; TEMP 36.9; O2SAT 97
[2025-06-07 07:32] LABS: Alanine Aminotransferase 18 U/L (0-40); Albumin Level 2.6 g/dL (3.5-5.0); Alkaline Phosphatase 231 U/L (39-117); Anion Gap 10 (12-20); Aspartate Amino Transferase 98 U/L (5-37); Blood Urea Nitrogen 4 mg/dL (9-16); Calcium 7.8 mg/dL (8.4-10.2); Carbon Dioxide 24 mmol/L (22-29); Chloride 100 mmol/L (96-108); Creatinine Clr Calc Pharmacy 132.4; Estimated Glomerular Filt Rate > 60; Magnesium 1.5 mg/dL (1.6-2.6); Potassium 3.4 mmol/L (3.3-5.1); Sodium 131 mmol/L (135-145); Total Protein 7.6 g/dL (6.5-8.0)
[2025-06-07 07:39] LABS: Hematocrit 31.6 % (42.0-52.0); Hemoglobin 11.2 g/dl (14.0-18.0); Imm Gran Abs Auto 0.01 X10*3/uL (0.00-0.03); Imm Gran Pct Auto 0.3 % (0.0-0.4); Lymphocytes Absolute Auto 1.1 X10*3/uL (1.2-4.9); Mean Corpuscular HGB Conc 35.4 g/dl (31.0-36.0); Mean Corpuscular Hemoglobin 31.9 pg (27.0-33.0); Mean Corpuscular Volume 90.0 fL (80.0-98.0); NRBC Abs Auto 0.000 X10*3/uL (0.0-0.012); NRBC Pct Auto 0.0 /100WBC (0.0-0.2); Platelet Count 57 X10*3/uL (160-400); Red Blood Count 3.51 X10*6/uL (4.60-5.80); White Blood Count 4.0 X10*3/uL (4.8-10.8)
[2025-06-07] MEDS: Magnesium Sulfate/H2O 2 GM/50 ML PIGGYBACK IV (08:34)
[2025-06-07] MEDS: Sodium Chloride Tab 1 GM TABLET PO ×2 (08:34→21:06)
[2025-06-07] MEDS: PHENobarbital 15 MG TABLET PO (08:34)
[2025-06-07] MEDS: Potassium Chloride ER 20 MEQ TAB.ER.PRT 40 MEQ PO (08:34)
[2025-06-07] MEDS: 0.9 % Sodium Chloride Flush 3 ML SYRINGE IVFLUSH ×2 (08:45→17:28)
[2025-06-07 11:37] VITALS: BP 102/60; PULSE 95; RESP 18; TEMP 36.9; O2SAT 97
--- NOTE | 2025-06-07 12:00 | MHC.CM.PN ---
Addendum entered by Marni Ashford 06/07/25 12:39: Per Francesca, there are no beds available for the programs that Patient requested. Francesca met with Patient to offer support and per that conversation, CM provided Patient with a list of local shelters (Patient has been living out of his car).Francesca put in a consult for the [facility] RN, who will be meeting with Patient today. Original Note: Per ROUNDS, Patient is medically cleared for dc today. Patient expressed an interest in [facility] program and adhesive bandage making operator/Josefina made referrals to such agencies. Josefina is unavailable; DANAY has reached out to her Weigher Packing/Francesca, who is looking into if any of the places referred to can accept Patient. CM awaits word from Francesca.
--- NOTE | 2025-06-07 13:08 | HO.ADDICTPRO ---
Subjective Subjective Date of Service: 06/07/25 Reason For Visit: etoh Interim History: Patient seen in follow up for AUD Withdrawal resolved. Reporting he feels better overall Per medical team, patient medically cleared. T/W followed up on referral to [facility]-per [facility] with no beds available. Patient had declined to have referrals sent to other facilities throughout [place], stating he wanted to stay local. T/W informed patient regarding lack of [facility] bed availability. Patient verbalized disappointment. Stating he would be staying in his car- offered to provide residential information to him through --patient agreeable. Discussed outpatient AUD treatment follow up. Patient accepting of referral to [facility] to discuss GRANT, still unsure about starting it now. Labs reviewed-sodium and Mg improving Bili elevated Review of Systems Constitutional: Reports as per HPI and Reports no additional constitutional complaints Mental Status Exam Mental Status Exam Patient Appearance: Appropriate Level of Consciousness: Awake, Appropriate and Alert Patient Behavior: Appropriate and Passive Affect Description: Blunted Speech Pattern: Clear Thought Process: Intact Thought Content: positive for Intact and positive for [place] Judgement: Good Diagnostics Vital Signs (24Hr): Vital Signs - 24 hr 06/06/25 15:17 06/06/25 20:00 06/06/25 23:28 Temperature 97.9 F 98.5 F 98.3 F Pulse Rate 100 92 80 Respiratory Rate 18 18 18 Blood Pressure 101/61 102/70 101/63 Pulse Oximetry 96 94 96 Oxygen Delivery Method Room Air Room Air Room Air 06/07/25 03:14 06/07/25 07:32 06/07/25 11:37 Temperature 97.9 F 98.5 F 98.4 F Pulse Rate 86 96 95 Respiratory Rate 18 18 18 Blood Pressure 121/59 L 102/63 102/60 Pulse Oximetry 95 97 97 Oxygen Delivery Method Room Air Room Air Room Air BMI result Body Mass Index 30.5 Labs 06/07/25 06:33 06/07/25 06:33 Labs: Laboratory Results - last 48 hr 06/05/25 06/06/25 06/07/25 13:39 07:11 06:33 WBC 4.7 L 4.5 L 4.0 L RBC 3.23 L 3.22 L 3.51 L Hgb 10.6 L 10.4 L 11.2 L Hct 29.0 L 29.1 L 31.6 L MCV 89.8 90.4 90.0 MCH 32.8 32.3 31.9 MCHC 36.6 H 35.7 35.4 RDW 17.2 H 17.1 H 17.3 H Plt Count 37 L 43 L 57 L D MPV 12.9 H 11.1 12.1 Immature Gran % (Auto) 0.6 H 0.2 0.3 Neut % (Auto) 58.5 61.1 59.1 Lymph % (Auto) 27.9 27.1 26.5 [place] % (Auto) 10.0 8.7 10.8 Eos % (Auto) 2.1 1.8 2.0 Baso % (Auto) 0.9 1.1 1.3 Lymph # (Auto) 1.3 1.2 1.1 L [place] # (Auto) 0.5 0.4 0.4 Eos # (Auto) 0.1 0.1 0.1 Baso # (Auto) 0.0 0.1 0.1 Abs Immat Gran (auto) 0.03 0.01 0.01 Absolute Neuts (auto) 2.7 2.7 2.4 Absolute Nucleated RBC 0.000 0.000 0.000 Nucleated RBC % (auto) 0.0 0.0 0.0 PT 22.4 H 20.3 H INR 1.9 H 1.7 H Sodium 127 L 131 L Potassium 3.1 L 3.4 Chloride 100 100 Carbon Dioxide 22 24 Anion Gap 8 L 10 L BUN 4 L 4 L Creatinine 0.64 0.69 Estim Creat Clear Calc 142.7 132.4 Estimated GFR > 60 > 60 Random Glucose 137 H 110 Calcium 7.2 L 7.8 L D Magnesium 1.6 1.5 L Total Bilirubin 3.4 H 4.0 H AST 93 H 98 H ALT 15 18 Alkaline Phosphatase 214 H 231 H Total Protein 7.0 7.6 Albumin 2.4 L 2.6 L Imaging Radiology Impressions: ITS Impressions Abdomen Ultrasound 06/06/25 15:21 IMPRESSION: Hepatomegaly and steatosis with the questionable hepatocellular disease versus cirrhosis. Ascites, moderate volume. Cholelithiasis. No choledocholithiasis. 6 mm calcification, midportion right kidney without hydronephrosis. Electronically signed by: Davis Pierre MD 06/06/2025 04:00 PM [facility] Medications Medications Current Medications Acetaminophen (Acetaminophen 325 Mg Tablet) 650 mg PO Q6H PRN PRN Reason: Pain, Mild 1-3,fever,headache Last Admin: 06/06/25 16:40 Dose: 650 mg Calcium Carbonate (Calcium Carbonate 750 Mg Tab.Chew) 750 mg PO Q4H PRN PRN Reason: Heartburn Clonazepam (Clonazepam 1 Mg Tablet) 1 mg PO DAILY PRN PRN Reason: Anxiety Last Admin: 06/06/25 16:40 Dose: 1 mg Fluoxetine HCl (Fluoxetine Hcl 20 Mg Capsule) 20 mg PO DAILY [facility] Last Admin: 06/07/25 08:34 Dose: 20 mg Ceftriaxone Sodium 1 gm/ (Sodium Chloride) 50 mls @ 100 mls/hr IV 2200 [facility] Last Infusion: 06/06/25 23:14 Dose: Infused Magnesium Hydroxide (Milk Of Magnesia 30 Ml Oral.Susp) 30 ml PO DAILY PRN PRN Reason: Constipation Magnesium Oxide (Magnesium Oxide 400 Mg Tablet) 800 mg PO BIDPC [facility] Last Admin: 06/07/25 08:34 Dose: 800 mg Melatonin (Melatonin 3 Mg Tablet) 6 mg PO BEDTIME PRN PRN Reason: Insomnia Last Admin: 06/05/25 20:14 Dose: 6 mg Metronidazole (Metronidazole 500 Mg Tablet) 500 mg PO TID [facility] Last Admin: 06/07/25 08:34 Dose: 500 mg Omeprazole (Omeprazole 20 Mg Capsule.Dr) 20 mg PO DAILY@0630 [facility] Last Admin: 06/07/25 06:14 Dose: 20 mg Pharmacy Consult (Consult Rx Etoh Phenob Im/Po) 1 each MISCELLANE ONCE PRN; Protocol PRN Reason: Consult order Sodium Chloride (0.9 % Sodium Chloride Flush 3 Ml Syringe) 3 ml IVFLUSH QSHIFT [facility] Last Admin: 06/07/25 08:45 Dose: 3 ml Sodium Chloride (Sodium Chloride Tab 1 Gm Tablet) 1 gm PO BID [facility] Last Admin: 06/07/25 08:34 Dose: 1 gm Spironolactone (Spironolactone 25 Mg Tablet) 50 mg PO DAILY [facility]; Protocol Last Admin: 06/07/25 08:34 Dose: 50 mg Allergies Allergies Allergy/AdvReac Type Severity Reaction Status Date / Time No Known Allergies Allergy Verified 06/01/25 18:46 Assessment & Plan Assessment & Plan (1) Alcohol use disorder, severe, dependence: Status: Acute Code(s): F10.20 - Alcohol dependence, uncomplicated Assessment and Plan: withdrawal resolved referral placed to [facility] to see patient prior to d/c and schedule follow up appt still unsure about GRANT. Encouraged to engage with outpatient supports. Patient agreeable Total time managing care of this patient today __30__ minutes.
--- NOTE | 2025-06-07 15:19 | MHC.CM.PN ---
Patient has a MAT Intake appointment on 06/12/25 @ 3 PM. CM and RN met with Patient and his Mother to discuss dc planning. Patient's Mother is concerned about Patient being dc'd without being on medication to assist Patient with AUD. RN will be reaching out to MD to discuss plan for medications at time of dc. Patient does not want to go to a jail; his Mother appears to be seriously considering allowing Patient to dc to her home in [place]. CM will follow.
[2025-06-07 15:40] VITALS: BP 102/68; PULSE 104; RESP 18; TEMP 36.6; O2SAT 96
[2025-06-07 19:42] VITALS: BP 103/56; PULSE 98; RESP 18; TEMP 36.5; O2SAT 99
--- NOTE | 2025-06-07 20:37 | PC.NURSE ---
Scheduled Sodium chloride tab not stocked on unit or nearby at present. Pharmacy notified and restock requested for admin due now.
[2025-06-08] VITALS: BP 118/64; PULSE 96; RESP 18; TEMP 36.6; O2SAT 98
[2025-06-08 03:08] VITALS: BP 120/78; PULSE 91; RESP 18; TEMP 36.6; O2SAT 98
[2025-06-08 07:09] LABS: MANUAL DIFF FLAG NO
[2025-06-08 07:19] LABS: INTERNATIONAL NORM RATIO 1.5 (0.9-1.1); Prothrombin Time 18.7 SEC (11.2-13.5)
[2025-06-08 07:39] LABS: Alanine Aminotransferase 13 U/L (0-40); Albumin Level 2.4 g/dL (3.5-5.0); Alkaline Phosphatase 191 U/L (39-117); Anion Gap 8 (12-20); Aspartate Amino Transferase 86 U/L (5-37); Blood Urea Nitrogen 3 mg/dL (9-16); Calcium 7.5 mg/dL (8.4-10.2); Carbon Dioxide 24 mmol/L (22-29); Chloride 103 mmol/L (96-108); Creatinine Clr Calc Pharmacy 145.0; Estimated Glomerular Filt Rate > 60; Magnesium 1.6 mg/dL (1.6-2.6); Potassium 3.7 mmol/L (3.3-5.1); Sodium 131 mmol/L (135-145); Total Protein 7.4 g/dL (6.5-8.0)
[2025-06-08 07:46] LABS: Hematocrit 28.9 % (42.0-52.0); Hemoglobin 10.6 g/dl (14.0-18.0); Imm Gran Abs Auto 0.01 X10*3/uL (0.00-0.03); Imm Gran Pct Auto 0.3 % (0.0-0.4); Lymphocytes Absolute Auto 0.9 X10*3/uL (1.2-4.9); Mean Corpuscular HGB Conc 36.7 g/dl (31.0-36.0); Mean Corpuscular Hemoglobin 31.8 pg (27.0-33.0); Mean Corpuscular Volume 86.8 fL (80.0-98.0); NRBC Abs Auto 0.000 X10*3/uL (0.0-0.012); NRBC Pct Auto 0.0 /100WBC (0.0-0.2); Platelet Count 60 X10*3/uL (160-400); Red Blood Count 3.33 X10*6/uL (4.60-5.80); White Blood Count 3.2 X10*3/uL (4.8-10.8)
[2025-06-08 08:00] VITALS: BP 116/64; PULSE 66; RESP 18; TEMP 36.6; O2SAT 99
[2025-06-08] MEDS: Sodium Chloride Tab 1 GM TABLET PO (08:27)
[2025-06-08] MEDS: 0.9 % Sodium Chloride Flush 3 ML SYRINGE IVFLUSH (08:27)
--- NOTE | 2025-06-08 09:52 | MHC.CM.PN ---
Patient has been medically cleared for dc to home (his Mother's home) today, self care. [facility] arranged to transport Patient today at 12:30PM. RN & MD are aware.
--- NOTE | 2025-06-08 11:38 | P.DS_ITS ---
DS: Providers Provider Date of admission: 06/01/25 23:17 Date of discharge: 06/08/25 Primary care physician: Slim Mancera DO Consults: 06/01/25 23:19 Consult to General Surgery Routine Consulting Provider: [facility] Reason for consultation: ?cholecystitis 06/02/25 08:42 Addiction Medicine Provider Routine Consulting Provider: Addiction Covering Reason for consultation: ETOH withdrawal 06/07/25 12:29 Consult to Comprehensive Care Stat Consulting Provider: [facility] DS: Diagnosis Discharge Diagnosis (1) Alcohol withdrawal syndrome: Status: Acute DS: Summary Hospital Course Hospital Course: 55-year-old male with a past medical history of alcoholic liver cirrhosis, hypertension, anxiety, depression; to the hospital requesting alcohol detox. #Alcohol use disorder with acute alcohol withdrawal Pt initially tremulous, increased anxiety, reports drinking 25+ beers daily requiring higher doses of phenobarb IM occasionally Completed phenobarb protocol inpt discharged home on supplements, seen by addiction inpt, # severe hypomagnesemia resolved In the setting of alcoholic hepatic cirrhosis Repleted with IV daily dc on PO Mg # HypoNa resolved Likely due to etoh, asymptomatic, f/up OP with PCP # hypoK resolved Etoh withdrawal , replaced to goal, #Question of cholecystitis CT abdomen pelvis showed gallbladder wall thickening, abd U/S positive Murhphy's sign Surgery consulted do not believe that this is an acute case of cholecystitis, outpatient management was receiving IV Abx inpt, without any clear source, dc upon dc, # hepatic cirrhosis, esophageal varices ascites GI consulted Watch for bleeding Daily INR for synthetic function Hb and INR stable at the time of discharge Chronic medical conditions Thrombocytopenia: Likely related to alcoholic liver disease. No signs of bleeding currently. stable Time Attestation Discharge Coordination Time (in mins): 40 mins Quality: Safe Use of Opioids Does Pt have an Active Cancer Diagnosis on the Problem List?: No Quality: Stroke Does the patient have a stroke diagnosis?: No Physical Exam Exam: Exam: A&Ox3 abdomen soft NT heart RRR lungs CTAB , on RA no JASON Vital Signs: Vital Signs: Last Vital Signs Temp 97.9 F 06/08/25 08:00 Pulse 66 06/08/25 08:00 Resp 18 06/08/25 08:00 BP 116/64 06/08/25 08:00 Pulse Ox 99 06/08/25 08:00 O2 Del Method Room Air 12/12/25 08:00 BMI result Body Mass Index 30.5 DS: Data Data Completed and Pending Labs on day of discharge: Laboratory Results - last 24 hr 06/08/25 06:37 WBC 3.2 L RBC 3.33 L Hgb 10.6 L Hct 28.9 L MCV 86.8 MCH 31.8 MCHC 36.7 H RDW 17.1 H Plt Count 60 L MPV 10.6 Immature Gran % (Auto) 0.3 Neut % (Auto) 53.3 Lymph % (Auto) 28.9 [place] % (Auto) 14.3 H Eos % (Auto) 2.2 Baso % (Auto) 1.0 Lymph # (Auto) 0.9 L [place] # (Auto) 0.5 Eos # (Auto) 0.1 Baso # (Auto) 0.0 Abs Immat Gran (auto) 0.01 Absolute Neuts (auto) 1.7 L Absolute Nucleated RBC 0.000 Nucleated RBC % (auto) 0.0 PT 18.7 H INR 1.5 H Sodium 131 L Potassium 3.7 Chloride 103 Carbon Dioxide 24 Anion Gap 8 L BUN 3 L Creatinine 0.63 Estim Creat Clear Calc 145.0 Estimated GFR > 60 Random Glucose 94 Calcium 7.5 L Magnesium 1.6 Total Bilirubin 4.2 H AST 86 H ALT 13 Alkaline Phosphatase 191 H Total Protein 7.4 Albumin 2.4 L Discharge Plan Discharge Anticipated Discharge Date/Time: 06/08/25 09:19 Patient Disposition: Home, Self-Care Discharge Diagnosis: Alcohol use disorder, alcohol withdrawal, abdominal pain Referrals: [facility] [Provider Group] - 06/12/25 3:00 pm Referral Note: Intake appt. Please bring photo ID and insurance card. If you can not keep this appt, please call to reschedule Slim Mancera DO [Primary Care Provider, Medical] - 1 Week Discharge Medications: New naltrexone 50 mg tablet 50 mg PO DAILY Qty: 30 0RF Rx Instructions: take 1/2 tab daily for three days, then increase to one tab daily thiamine HCl (vitamin B1) 100 mg tablet 100 mg PO DAILY Qty: 30 0RF folic acid 1 mg tablet 1 mg PO DAILY Qty: 30 0RF Continued clonazepam 1 mg tablet 1 mg PO DAILY PRN (Reason: Anxiety) magnesium oxide 400 mg (241.3 mg magnesium) tablet 400 mg PO DAILY omeprazole 20 mg capsule,delayed release(DR/EC) 20 mg PO DAILY fluoxetine 20 mg capsule 20 mg PO DAILY spironolactone 50 mg tablet 50 mg PO DAILY multivitamin Tablet 1 tab PO DAILY vitamin A 2,400 mcg Capsule 2,400 mcg PO DAILY Discontinued naproxen 250 mg Tablet 250 mg PO BID PRN (Reason: Pain) Discharge Orders: Discharge Order (Routine); Ordered 06/08/25 Ordered By: Anisa Gtz Activity on Discharge: As tolerated Stand Alone Forms: Patient Portal Discharge page Print Language: Unable To Collect Care Plan Goals: You came to hospital for alcohol detox and completed phenobarb protocol. You were also seen by addiction and your electrolyte derangements in the setting of alcohol use were also addressed. You are being discharged home today on supplements. Health Concerns: see above Plan of Treatment: see above Assessment: see above
[2025-06-08 12:00] VITALS: BP 103/64; PULSE 97; RESP 18; TEMP 36.9; O2SAT 97
== END 2025-06-08 12:44 | disposition home or self-care (01) | DRG 775 ==
LOC: HO.ED 23:14 → HO.EDOVER 23:38 → HO.IMC 06-02 11:56
PROVIDERS: Physician Assistant; Physician Assistant Medical; Student in an Organized Health Care Education/Training Program; Admitting Provider Hospitalist; Emergency Provider Emergency Medicine; PCP Internal Medicine; Visit Provider Hospitalist
DX: F10.239 Alcohol dependence with withdrawal, unspecified (principal); D61.818 Other pancytopenia; I85.10 Secondary esophageal varices without bleeding; K70.31 Alcoholic cirrhosis of liver with ascites; E87.1 Hypo-osmolality and hyponatremia; Y90.8 Blood alcohol level of 240 mg/100 ml or more; K81.9 Cholecystitis, unspecified; K29.20 Alcoholic gastritis without bleeding; E83.42 Hypomagnesemia; E87.6 Hypokalemia; Z87.891 Personal history of nicotine dependence; Z79.899 Other long term (current) drug therapy
CPT/HCPCS: 36415; 76705; 80048; 80053; 80307; 82248; 82803; 83690; 83735; 85025; 85027; 85610; 87040; 93005; 97162; 99285; J0696; J0737; J1808; J1836; J2405; J2470; J2560; J3411; J3475; J3480; S9485

== ENCOUNTER → 2025-06-01 18:46 | Outpatient (BNV) | payer MEDICAID, SELFPAY | PROVIDERS: Admitting Provider Hospitalist; Emergency Provider Emergency Medicine; PCP Internal Medicine; Visit Provider Internal Medicine | DX: R94.31 Abnormal electrocardiogram [ECG] [EKG] (principal); F10.930 Alcohol use, unspecified with withdrawal, uncomplicated | CPT/HCPCS: 93010 ==

== ENCOUNTER → 2025-06-01 20:38 | Outpatient (BNV) | payer MEDICAID, SELFPAY | PROVIDERS: PCP Internal Medicine; Visit Provider Student in an Organized Health Care Education/Training Program | DX: K80.20 Calculus of gallbladder without cholecystitis without obstruction (principal); K82.8 Other specified diseases of gallbladder; K76.0 Fatty (change of) liver, not elsewhere classified; R16.0 Hepatomegaly, not elsewhere classified | CPT/HCPCS: 76705 ==

== ENCOUNTER 2025-06-01 23:17 | Outpatient (BNV) | payer MEDICAID, SELFPAY | END 2025-06-06 15:21 | PROVIDERS: Admitting Provider Hospitalist; Emergency Provider Emergency Medicine; PCP Internal Medicine; Visit Provider Radiology Diagnostic Radiology | DX: R16.0 Hepatomegaly, not elsewhere classified (principal); K76.0 Fatty (change of) liver, not elsewhere classified; R18.8 Other ascites; K80.20 Calculus of gallbladder without cholecystitis without obstruction; N20.0 Calculus of kidney | CPT/HCPCS: 76705 ==

== ENCOUNTER → 2025-06-01 23:17 | Outpatient (BNV) | payer OTHER, SELFPAY | PROVIDERS: Admitting Provider Hospitalist; Emergency Provider Emergency Medicine; PCP Internal Medicine; Visit Provider Nurse Practitioner Psychiatric/Mental Health | DX: F10.20 Alcohol dependence, uncomplicated (principal) | CPT/HCPCS: 99231; 99232 ==

== ENCOUNTER → 2025-06-01 23:17 | Outpatient (BNV) | payer MEDICAID, SELFPAY | PROVIDERS: Admitting Provider Hospitalist; Emergency Provider Emergency Medicine; PCP Internal Medicine; Visit Provider Surgery | DX: R10.9 Unspecified abdominal pain (principal); F10.930 Alcohol use, unspecified with withdrawal, uncomplicated | CPT/HCPCS: 99232 ==

== ENCOUNTER → 2025-06-01 23:17 | Outpatient (BNV) | payer MEDICAID, SELFPAY | PROVIDERS: Admitting Provider Hospitalist; Emergency Provider Emergency Medicine; PCP Internal Medicine; Visit Provider Hospitalist | DX: F10.930 Alcohol use, unspecified with withdrawal, uncomplicated (principal) | CPT/HCPCS: 99223; 99233 ==

== ENCOUNTER 2025-06-12 15:04 | Outpatient (AMB) | payer MEDICAID, SELFPAY ==
--- NOTE | 2025-06-12 15:07 | MHC.AM.SUB ---
Vital Signs 06/12/25 15:19 Height 5 ft 10 in Weight 222 lb BMI 31.9 BP 122/78 Pulse 92 Pulse Oximetry (%) 94 Intake Visit Reasons: MAT Intake Allergies No Known Allergies Allergy (Verified 06/12/25 15:20) HPI Comments Details: A 55-year-old male presents with mother for a MAT r/t AUD. Reports was admitted to [facility] on June 01 for alcohol withdrawals. Since this date has maintained sobriety from alcohol, denies use opiates, and other substances. Acknowledges the naltrexone is working well and diminishing cravings. He is interested in starting on Vivitrol. Review of Systems Const All systems reviewed & are unremarkable except as noted in HPI and below Physical Exam Vital Signs: Last Vital Signs Pulse 92 06/12/25 15:19 BP 122/78 06/12/25 15:19 Pulse Ox 94 06/12/25 15:19 BMI result Body Mass Index 31.9 Const General: cooperative Results AMB 14 Panel Urine Drug Screen Urine Marijuana (THC) Negative Last Edit by Fara Dobbins CMA on 06/12/25 15:24 Urine Cocaine Negative Last Edit by Fara Dobbins CMA on 06/12/25 15:24 Urine Morphine Negative Last Edit by Fara Dobbins CMA on 06/12/25 15:24 Urine Methamphetamine Negative Last Edit by Fara Dobbins CMA on 06/12/25 15:24 Urine Amphetamine Negative Last Edit by Fara Dobbins CMA on 06/12/25 15:24 Urine Benzodiazepine Positive Last Edit by Fara Dobbins CMA on 06/12/25 15:24 Urine Barbiturates Positive Last Edit by Fara Dobbins CMA on 06/12/25 15:24 Urine Methadone Negative Last Edit by Fara Dobbins CMA on 06/12/25 15:24 Urine Buprenorphine Positive Last Edit by Fara Dobbins CMA on 06/12/25 15:24 Urine Tricyclic Antidepressant Negative Last Edit by Fara Dobbins CMA on 06/12/25 15:24 Urine MDMA Negative Last Edit by Fara Dobbins CMA on 06/12/25 15:24 Urine Oxycodone Negative Last Edit by Fara Dobbins CMA on 06/12/25 15:24 Urine Phencyclidine Negative Last Edit by Fara Dobbins CMA on 06/12/25 15:24 Urine Propoxyphene Negative Last Edit by Fara Dobbins CMA on 06/12/25 15:24 Results Reviewed Results Reviewed: Laboratory Last Values POC Urine Buprenorphine Positive 06/12/25 15:21 POC Urine Morphine Negative 06/12/25 15:21 POC Urine Oxycodone Negative 06/12/25 15:21 POC Urine Methadone Negative 06/12/25 15:21 POC Urine Propoxyphene Negative 06/12/25 15:21 POC Urine Barbiturates Positive 06/12/25 15:21 POC U Tricyclic Antidpr Negative 06/12/25 15:21 POC Urine PCP Negative 06/12/25 15:21 POC Ur Amphetamines Negative 06/12/25 15:21 POC Ur Methamphetamine Negative 06/12/25 15:21 POC Urine MDMA Negative 06/12/25 15:21 POC Ur Benzodiazepine Positive 06/12/25 15:21 POC Urine Cocaine Negative 06/12/25 15:21 POC Ur Marijuana (THC) Negative 06/12/25 15:21 PFSH Social History Household Members: None Housing: House Do you presently have visiting nurse or other home services: No Alcohol intake: current Alcohol intake frequency: 3 or more drinks per day Alcohol type: beer Comment: pt refuses alarms. Has yellow socks. Low falls in place Patient Tobacco Use Status: Former Tobacco user service: No Assessment & Plan Assessment & Plan (1) Alcohol use disorder, severe, dependence: Code(s): F10.20 - Alcohol dependence, uncomplicated Category: Medical Plan The plan of care is to continue with naltrexone 50 mg, thiamine 100 mg, and folic acid 1 mg daily. Education provided re: naltrexone, thiamine, and folic acid including purpose, general medication, and side effects. Risk reduction activities discussed. After reviewing previous lab work, he has a diagnosis of thrombocytopenia and currently Vivitrol is contraindicated. manager web provided additional education/information on community resources, a welcome packet, and referral for mental health service. Follow-up in 1 month or sooner if needed. Orders: Orders AMB 14 Panel Urine Drug Screen Today Z51.81 - Encounter for therapeutic drug level monitoring Medications: New naltrexone microspheres ER (Vivitrol) Administer IM Q28 days at gluteal muscle 380 mg IM Q4W 1 ea 0RF 28 days Changed From thiamine HCl (vitamin B1) 100 mg PO DAILY 30 tabs 0RF To thiamine HCl (vitamin B1) Take 1 tablet by mouth daily 100 mg PO DAILY 90 tabs 0RF 90 days From naltrexone take 1/2 tab daily for three days, then increase to one tab daily 50 mg PO DAILY 30 tabs 0RF To naltrexone Take 1 tablet daily 50 mg PO DAILY 30 tabs 0RF From folic acid 1 mg PO DAILY 30 tabs 0RF To folic acid Take 1 tablet by mouth daily 1 mg PO DAILY 90 tabs 0RF 90 days Patient Instructions: - Continue with naltrexone, thiamine, and folic acid as prescribed. - Engage in risk reduction activities. - Follow up with community resources for support. - Follow-up in 1 month or sooner if needed. - Call with questions, concerns, or to report side effects/new onset of symptoms to [facility]. - The patient verbalized understanding and agreed with plan of care. 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 [employer] What is your current relationship status?: single Current PCP: Dr Slim Mancera - Date of last visit: approximately 2 months ago Referral Source: inpatient [facility] Substance Abuse History Substance Abuse History (includes route, frequency and quantity): Alcohol (problematic for about 25 years) Age of first use: began 21 Social History Domestic Violence concerns: 0 Children: 0 Do you have a support system?: yes Current mode of transportation?: self Where are you currently residing?: [place] with mother LMP: NA IV Drug Use Have you ever shared needles?: No Have you ever belonged to a needle exchange program?: No Do you buy needles at a pharmacy?: No Have you ever overdosed?: No Number of lifetime overdoses: 0 Have you ever been hospitalized for an overdose?: No Was Naloxone administered?: Not applicable Recovery History Have you had any periods of recovery?: Yes What is your longest time in recovery?: 4 months When was the last time you were in recovery?: around 5 yrs ago Have you ever had inpatient treatment for your substance abuse disorder?: No Have you been in an inpatient detoxification program?: No Have you been in an inpatient Rehab/Residential house?: No Have you been in an outpatient Methadone Maintenance program?: No Have you been in an AA/NA support program?: Yes Have you had a Recovery Support Installation Tech?: No (may consider in the future- attending AA daily and looking into [facility]) Have you had Peer Support?: No Behavioral Health History Do you have a current provider? If so, who?: none current - sending referral to [facility] diagnosis: anxiety History of other addictive behavior: none History of inpatient psychiatric hospitalization? If so, how many? Most Recent? Where?: none History of self harming thoughts?: No History of homicidal or suicidal intentions?: No Medical Conditions Endocarditis?: No Skin Infection: No Seizure related to withdrawal or overdose: No Head or brain injury: No Hepatitis A (if yes, have you been treated?): No Hepatitis B (if yes, have you been treated?): No Hepatitis C (if yes, have you been treated?): No HIV (if yes, have you been treated?): No TB (if yes, have you been treated?): No Other: No Do you have any chronic pain conditions?: no Legal History History of incarceration: No Currently on parole or probation: No Court mandated programs: No Pending court cases: No DCF involvement: No
[2025-06-12 15:19] VITALS: BP 122/78; PULSE 92; O2SAT 94; BMI 31.9
--- OUTSIDE RECORDS SUMMARY | 2025-06-12 19:24 | XMS_ITS | Clinical Summary ---
Author Organization [facility] Address [address] [address] Phone Care Team Providers Care Strip Feeder Name Role Phone Slim Mancera DO Primary [...] topic Medical Devices Not on file Insurance [facility] Care Teams Strip Feeder Relationship Specialty Start Date End Date Slim Mancera, DO [address] [facility] [address] [place] [id number] PCP - General Internal Medicine 09/14/21 Additional Source Comments The information contained in this document represents components of the legal health record. It is not the complete legal health record.[facility]
== END 2025-06-12 16:11 | disposition home or self-care (01) ==
LOC: HO.HCC 15:04
PROVIDERS: PCP Internal Medicine; Visit Provider Clinical Nurse Specialist Psychiatric/Mental Health
DX: Z51.81 Encounter for therapeutic drug level monitoring (principal); F10.20 Alcohol dependence, uncomplicated
CPT/HCPCS: 99203

== ENCOUNTER → 2025-06-12 15:04 | Outpatient (BNVA) | payer MEDICAID, SELFPAY | PROVIDERS: PCP Internal Medicine; Visit Provider Clinical Nurse Specialist Psychiatric/Mental Health | DX: F10.20 Alcohol dependence, uncomplicated (principal); Z51.81 Encounter for therapeutic drug level monitoring | CPT/HCPCS: 80307; 99212 ==